=== PATIENT | female | born 1970 | race Caucasian/White ===

== ENCOUNTER 2016-11-07 03:17 | Emergency (ER) | payer OTHER ==
--- NOTE | 2016-11-07 03:33 | ED ---
Lower Extremity Injury HPI - General Chief Complaint: Extremity Injury, Lower Stated Complaint: knee pain Time Seen by Provider: 11/07/16 03:29 Source: patient, family, RN notes reviewed, old records reviewed Mode of arrival: ambulatory Limitations: no limitations - History of Present Illness Initial Comments: is a 46-year-old [employer] chief complaint of left knee pain and swelling for the past 3 weeks. Patient reports that the pain is gotten worse and woke her up this evening. Patient reports that she is able to ambulate over her knee however does cause pain after she walks for long periods of time. Patient denies any previous imaging studies or injuries to cause the pain and swelling. She denies any fever or chills. She denies any numbness or tingling or pain radiating down the leg at the calf or upper thigh. She denies any foot or ankle pain as well. She denies peripheral paresthesias.Patient denies any recent fever, chills, shortness of breath, chest pain, back pain, abdominal pain , nausea vomiting, numbness or tingling, dysuria or hematuria, constipation or diarrhea, headaches or visual changes, or any other current symptoms - Related Data Home Medications Medication Instructions Recorded Confirmed Albuterol Inhaler [Ventolin Hfa 2 puff INHALATION RT-Q6H PRN 07/27/16 11/07/16 Inhaler] Fluticasone/Salmeterol [Advair 2 puff INHALATION RT-BID 07/27/16 11/07/16 100-50 Diskus] Previous Rx's Medication Instructions Recorded Ibuprofen [Motrin] 600 mg PO Q6HR PRN #20 tab 11/07/16 traMADol HCl [Ultram] 50 mg PO Q4H PRN #12 tab 11/07/16 Allergies Allergy/AdvReac Type Severity Reaction Status Date / Time aspirin Allergy Unknown Verified 11/07/16 03:25 Penicillins Allergy Rash/Hives Verified 11/07/16 03:25 Review of Systems ROS Statement: Those systems with pertinent positive or pertinent negative responses have been documented in the HPI. ROS Other: All systems not noted in ROS Statement are negative. Past Medical History Past Medical History: Chest Pain / Angina Additional Past Medical History / Comment(s): BBB, chronic back pain, History of Any Multi-Drug Resistant Organisms: None Reported Past Surgical History: Hysterectomy Past Psychological History: No Psychological Hx Reported Smoking Status: Current every day smoker Past Alcohol Use History: Rare Past Drug Use History: None Reported General Exam - General Exam Comments Initial Comments: Is a pleasant 46-year-old female. She is on appear to be in any acute distress. Limitations: no limitations General appearance: alert, in no apparent distress Head exam: Present: atraumatic, normocephalic, normal inspection Eye exam: Present: normal appearance, PERRL, EOMI. Absent: scleral icterus, conjunctival injection, periorbital swelling ENT exam: Present: normal exam, mucous membranes moist Neck exam: Present: normal inspection. Absent: tenderness, meningismus, lymphadenopathy Respiratory exam: Present: normal lung sounds bilaterally. Absent: respiratory distress, wheezes, rales, rhonchi, stridor Cardiovascular Exam: Present: regular rate, normal rhythm, normal heart sounds. Absent: systolic murmur, diastolic murmur, rubs, gallop, clicks GI/Abdominal exam: Present: soft, normal bowel sounds. Absent: distended, tenderness, guarding, rebound, rigid Extremities exam: Present: normal inspection, full ROM, normal capillary refill. Absent: tenderness, pedal edema, joint swelling, calf tenderness Left Hip exam: Present: normal inspection, full ROM Upper Leg exam: Present: normal inspection, full ROM Knee exam: Present: normal inspection, tenderness (She reports tenderness over the medial meniscus.), swelling (An intensive significant swelling.). Absent: full ROM Lower Leg exam: Present: normal inspection, full ROM Ankle exam: Present: normal inspection, full ROM Course Vital Signs 11/07/16 11/07/16 03:21 04:18 Temperature 97.2 F L 97 F L Pulse Rate 92 89 Respiratory 18 20 Rate Blood Pressure 121/78 144/65 O2 Sat by Pulse 97 97 Oximetry Medical Decision Making - Medical Decision Making Is a 46-year-old female 3 weeks of chronic left knee pain. Patient reports that over the past day she's noticed it to be increased in swelling and the pain is gotten worse. She reports the pain woke her up from sleep. She denies any peripheral paresthesias or any other cause of injury of the knee. X-ray of knee was obtained. Patient is able to ambulate. Xray is normal with evidence of joint effusion. No acute fractures. Patient will be given antiinflammatory medication and tramadol for pain. Patient given LEVI wrap and referral to ortho. Patient understands treatment plan and will comply. Return parameters discussed. - Radiology Data Radiology results: report reviewed XR knee is negative for fracture. Evidence of joint effusion. Disposition Clinical Impression: Swelling of left knee joint Disposition: HOME SELF-CARE Condition: Good Instructions: Knee Pain (ED), Swollen Knee Joint (ED) Additional Instructions: Patient instructed to remain an Levi wrap except for sleeping. Take anti- inflammatory medications as prescribed. Start steroids for the next 3 days. Return to the [facility] if any alarming signs or symptoms occur. Follow-up with orthopedic physician Prescriptions: Ibuprofen [Motrin] 600 mg PO Q6HR PRN #20 tab PRN Reason: Pain traMADol HCl [Ultram] 50 mg PO Q4H PRN #12 tab PRN Reason: Pain Referrals: Jeovany Neely MD [STAFF PHYSICIAN] - 1-2 days Time of Disposition: 04:05
--- NOTE | 2016-11-07 04:04 | XR ---
EXAMINATION TYPE: XR knee complete LT DATE OF EXAM: 11/07/2016 3:47 AM CLINICAL HISTORY: Left hip pain x3 weeks no known injury TECHNIQUE: Three views of the 3 knee are obtained. COMPARISON: None. FINDINGS: There is no acute fracture/dislocation evident in left knee. The tri-compartment joint sp aces appear within normal limits. There is mild effusion in the left suprapatellar bursa. Mild soft t issue swelling is noted surrounding the left knee. IMPRESSION: 1. There is no acute fracture or dislocation in the left knee. 2. Mild effusion and soft tissue swelling.
[2016-11-07 04:19] VITALS: BP 144/65; PULSE 89; RESP 20; TEMP 97
== END 2016-11-07 04:19 | disposition home or self-care (01) ==
LOC: EC 03:17
DX: M25.462 Effusion, left knee (principal); G89.29 Other chronic pain; M25.562 Pain in left knee; F17.200 Nicotine dependence, unspecified, uncomplicated; Z79.51 Long term (current) use of inhaled steroids; Z88.0 Allergy status to penicillin; Z88.6 Allergy status to analgesic agent
CPT/HCPCS: 99283

== ENCOUNTER → 2016-12-16 | Outpatient (CLI) | payer OTHER ==
[2016-12-16 14:18] LABS: CH 31.1; CHCM 33.4; HCT 39.2 % (34.0-46.0); HDW 2.42; HGB 13.1 gm/dL (11.4-16.0); MCH 31.2 pg (25.0-35.0); MCHC 33.4 g/dL (31.0-37.0); MCV 93.5 fL (80.0-100.0); Mean Platelet Volume 7.9; RBC 4.19 m/uL (3.80-5.40); RDW 13.3 % (11.5-15.5); WBC 9.8 k/uL (3.8-10.6)
[2016-12-16 14:23] LABS: ALT 31 U/L (9-52); AST 18 U/L (14-36); Alkaline Phosphatase 85 U/L (38-126); Anion Gap 11 mmol/L; Blood Urea Nitrogen 14 mg/dL (7-17); C Reactive Protein 6.3 mg/L (<10.0); Calcium 9.1 mg/dL (8.4-10.2); Carbon Dioxide 22 mmol/L (22-30); Chloride 109 mmol/L (98-107); Glucose 119 mg/dL (74-99); Non-African American GFR(MDRD) >60 (>60 ml/min/1.73 sqM); Potassium 4.2 mmol/L (3.5-5.1); Rheumatoid Factor, Qnt <9 IU/mL (<12); Sodium 142 mmol/L (137-145); Total Bilirubin 0.4 mg/dL (0.2-1.3); Total Protein 7.7 g/dL (6.3-8.2)
[2016-12-16 16:57] LABS: Erythrocyte Sedimentation Rate 40 mm/hr (0-20)
[2016-12-17 05:19] LABS: Lyme Antibodies Total(IgG/IgM) 0.54 (<0.90)
[2016-12-17 12:54] LABS: HLA B27 NEGATIVE; HLA B27 Comment SEEBELOW
[2016-12-18 07:56] LABS: ANA w/Reflex to Titer POSITIVE (NEGATIVE)
== END | disposition home or self-care (01) ==
LOC: LABWHC1 13:37
PROVIDERS: ATTEND Physician Assistant
DX: M25.562 Pain in left knee (principal)
CPT/HCPCS: 36415; 80053; 84443; 85027; 85652; 86038; 86039; 86060; 86140; 86431; 86618; 86812

== ENCOUNTER 2018-07-04 16:35 | Emergency (ER) | payer OTHER ==
[2018-07-04 17:02] VITALS: TEMP 98.3
--- NOTE | 2018-07-04 17:20 | XR ---
EXAMINATION TYPE: XR foot complete LT DATE OF EXAM: 07/04/2018 CLINICAL HISTORY: Foot pain after injury attention to first toe TECHNIQUE: Frontal, lateral, and oblique images of the left foot are obtained. COMPARISON: None FINDINGS: There is no acute fracture/dislocation evident in the left foot with particular attention to left first toe. The joint spaces in the left foot appear within normal limits. The overlying sof t tissue appears unremarkable. IMPRESSION: There is no acute fracture or dislocation in the left foot.
[2018-07-04] MEDS ORDERED: traMADol 50 MG TAB PO STA (17:44)
--- NOTE | 2018-07-04 17:49 | ED ---
General Adult HPI - General Chief complaint: Extremity Injury, Lower Stated complaint: Foot injury Time Seen by Provider: 07/04/18 17:35 Source: patient, RN notes reviewed Mode of arrival: wheelchair Limitations: no limitations - History of Present Illness Initial comments: Patient is a pleasant 48-year-old female presenting to the emergency Department with left foot injury. Patient fell down the steps and hurt her left foot. Unclear exact mechanism. Patient has had discomfort since that time. Swelling has actually improved some. Patient has noticed some bruising. Discomfort does increase with movement or touch. No history of serious injury to this region previously. Discomfort is mostly located left first and second MTP. No head injury or loss of consciousness. No chest pain or dyspnea. No abdominal pain. - Related Data Home Medications Medication Instructions Recorded Confirmed Albuterol Inhaler [Ventolin Hfa 2 puff INHALATION RT-Q6H PRN 07/27/16 11/07/16 Inhaler] Fluticasone/Salmeterol [Advair 2 puff INHALATION RT-BID 07/27/16 11/07/16 100-50 Diskus] Previous Rx's Medication Instructions Recorded Ibuprofen [Motrin] 600 mg PO Q6HR PRN #20 tab 11/07/16 traMADol HCl [Ultram] 50 mg PO Q4H PRN #12 tab 11/07/16 Ibuprofen [Motrin] 600 mg PO Q6HR PRN #20 tab 07/04/18 Allergies Allergy/AdvReac Type Severity Reaction Status Date / Time aspirin Allergy Unknown Verified 07/04/18 17:02 Penicillins Allergy Rash/Hives Verified 07/04/18 17:02 steriods Allergy Swelling Uncoded 07/04/18 17:02 Review of Systems ROS Statement: Those systems with pertinent positive or pertinent negative responses have been documented in the HPI. ROS Other: All systems not noted in ROS Statement are negative. Constitutional: Denies: fever Eyes: Denies: eye pain ENT: Denies: ear pain Respiratory: Denies: dyspnea Cardiovascular: Denies: chest pain Endocrine: Denies: fatigue Gastrointestinal: Denies: abdominal pain Genitourinary: Denies: dysuria Musculoskeletal: Denies: back pain Skin: Denies: rash Neurological: Denies: headache Past Medical History Past Medical History: Chest Pain / Angina Additional Past Medical History / Comment(s): BBB, chronic back pain, History of Any Multi-Drug Resistant Organisms: None Reported Past Surgical History: Hysterectomy Past Psychological History: No Psychological Hx Reported Smoking Status: Current every day smoker Past Alcohol Use History: Rare Past Drug Use History: None Reported General Exam Limitations: no limitations General appearance: alert, in no apparent distress Head exam: Present: atraumatic Eye exam: Present: normal appearance Neck exam: Present: normal inspection. Absent: tenderness Respiratory exam: Present: normal lung sounds bilaterally Cardiovascular Exam: Present: regular rate, normal rhythm Expanded Peripheral pulses: 2+: Posterior Tibialis (L), Dorsalis Pedis (L) GI/Abdominal exam: Present: soft. Absent: tenderness Extremities exam: Present: other (Patient has mild swelling and ecchymosis mostly of the first MTP, somewhat of the second MTP. Decreased range of motion of the great toe secondary to pain. Moderate to severe tenderness to palpation. Sensation and cap refill intact.) Back exam: Absent: vertebral tenderness Neurological exam: Present: alert Psychiatric exam: Present: normal affect, normal mood Skin exam: Present: other (Ecchymosis left great toe) Course Vital Signs 07/04/18 17:00 Temperature 98.3 F Pulse Rate 93 Respiratory 18 Rate Blood Pressure 127/71 O2 Sat by Pulse 97 Oximetry Disposition Clinical Impression: Foot sprain Disposition: HOME SELF-CARE Condition: Stable Instructions: Foot Sprain (ED) Additional Instructions: Please follow-up with primary care physician in the next couple days for recheck. Limit walking on the foot. Used postoperative shoe. Consider use of a cane if needed. Return for increased pain, swelling, worsening or changing symptoms or other concerns. Prescriptions: Ibuprofen [Motrin] 600 mg PO Q6HR PRN #20 tab PRN Reason: Pain Is patient prescribed a controlled substance at d/c from ED?: No Referrals: Rosa Maria Isabel MD [STAFF PHYSICIAN] - 1-2 days Time of Disposition: 17:48
[2018-07-04 18:22] VITALS: BP 136/71; PULSE 76; RESP 16
== END 2018-07-04 18:15 | disposition home or self-care (01) ==
LOC: EC 16:35
DX: S93.692A Other sprain of left foot, initial encounter (principal); F17.200 Nicotine dependence, unspecified, uncomplicated; Z79.51 Long term (current) use of inhaled steroids; Z88.0 Allergy status to penicillin; Z88.6 Allergy status to analgesic agent; Z88.8 Allergy status to other drugs, medicaments and biological substances; W10.9XXA Fall (on) (from) unspecified stairs and steps, initial encounter
CPT/HCPCS: 99283

== ENCOUNTER 2019-07-02 14:53 | Emergency (ER) | payer OTHER ==
--- NOTE | 2019-07-02 16:30 | ED ---
General Adult HPI - General Chief complaint: Shortness of Breath Stated complaint: ROB,cough Time Seen by Provider: 07/02/19 16:20 Source: patient, RN notes reviewed Mode of arrival: ambulatory Limitations: no limitations - History of Present Illness Initial comments: 49-year-old female with a past medical history of COPD, smoking history presents for cough. Patient has had a cough for about a week. Patient has a mild associated chest of breath with this. Denies any chest pain. States cough is productive. States she is to use inhalers but since she moved to this area does not have any inhalers. States she is ALLERGIC to steroids. Denies fevers or chills.Patient has no other complaints at this time including chest pain, abdominal pain, nausea or vomiting, headache, or visual changes. - Related Data Home Medications Medication Instructions Recorded Confirmed Albuterol Inhaler [Ventolin Hfa 2 puff INHALATION RT-Q6H PRN 07/27/16 07/04/18 Inhaler] Previous Rx's Medication Instructions Recorded Ibuprofen [Motrin] 600 mg PO Q6HR PRN #20 tab 07/04/18 Albuterol Inhaler [Ventolin Hfa 1 - 2 puff INHALATION Q6HR PRN #1 07/02/19 Inhaler] inhaler Azithromycin [Zithromax Z-pack] 250 mg PO DIRECTED #6 tab 07/02/19 Benzonatate [Tessalon Perles] 200 mg PO Q8H PRN #15 capsule 07/02/19 Allergies Allergy/AdvReac Type Severity Reaction Status Date / Time aspirin Allergy Unknown Verified 07/02/19 15:21 Penicillins Allergy Rash/Hives Verified 07/02/19 15:21 steriods Allergy Swelling Uncoded 07/02/19 15:21 Review of Systems ROS Statement: Those systems with pertinent positive or pertinent negative responses have been documented in the HPI. ROS Other: All systems not noted in ROS Statement are negative. Past Medical History Past Medical History: Chest Pain / Angina Additional Past Medical History / Comment(s): BBB, chronic back pain, History of Any Multi-Drug Resistant Organisms: None Reported Past Surgical History: Hysterectomy Past Psychological History: No Psychological Hx Reported Smoking Status: Current every day smoker Past Alcohol Use History: Rare Past Drug Use History: None Reported General Exam Limitations: no limitations General appearance: alert, in no apparent distress Head exam: Present: atraumatic, normocephalic, normal inspection Eye exam: Present: normal appearance, PERRL, EOMI. Absent: scleral icterus, conjunctival injection, periorbital swelling ENT exam: Present: normal exam, mucous membranes moist Neck exam: Present: normal inspection, full ROM. Absent: tenderness, meningismus, lymphadenopathy Respiratory exam: Present: wheezes (minimal in lower vega bilat), decreased breath sounds (diminished bilat). Absent: respiratory distress, rales, rhonchi, stridor Cardiovascular Exam: Present: regular rate, normal rhythm, normal heart sounds. Absent: systolic murmur, diastolic murmur, rubs, gallop, clicks Neurological exam: Present: alert Course Vital Signs 07/02/19 07/02/19 07/02/19 15:17 16:58 17:13 Temperature 98.0 F Pulse Rate 84 84 82 Respiratory 22 Rate Blood Pressure 149/91 O2 Sat by Pulse 97 Oximetry Medical Decision Making - Medical Decision Making 49-year-old well-appearing female presents for cough. This has been ongoing for a week. History of COPD. Vitals are stable. Patient is 97% on room air. Lung sounds are diminished bilaterally with minimal wheezing. Chest x-ray obtained which showed a normal chest. She was given breathing treatment which did help significantly. She is ALLERGIC to steroids unfortunately. At this time patient likely a COPD exacerbation. She'll be discharged home with inhaler and antibiotic. She will follow up with primary care in 1-2 days or return if she has any worsening symptoms. Disposition Clinical Impression: COPD exacerbation Disposition: HOME SELF-CARE Condition: Good Instructions (If sedation given, give patient instructions): COPD (Chronic Obstructive Pulmonary Disease) (ED), Acute Cough (ED) Additional Instructions: Please use medications as directed. These were prescribed to Braxton Ortiz. Follow- up with primary care in 1-2 days. If you have worsening symptoms or this is not resolving return to the ER. Prescriptions: Benzonatate [Tessalon Perles] 200 mg PO Q8H PRN #15 capsule PRN Reason: Cough Albuterol Inhaler [Ventolin Hfa Inhaler] 1 - 2 puff INHALATION Q6HR PRN #1 inhaler PRN Reason: Shortness Of Breath Azithromycin [Zithromax Z-pack] 250 mg PO DIRECTED #6 tab Is patient prescribed a controlled substance at d/c from ED?: No Referrals: Amor Walter MD [REFERRING] - 1-2 days Time of Disposition: 17:39
--- NOTE | 2019-07-02 16:44 | XR ---
EXAMINATION TYPE: XR chest 2V DATE OF EXAM: 07/02/2019 COMPARISON: 05/21/2015 HISTORY: Short of breath TECHNIQUE: Frontal and lateral views of the chest are obtained. FINDINGS: Heart and mediastinum are normal. Lungs are clear. Diaphragm is normal. Bony thorax is int act. IMPRESSION: Normal chest. No change.
[2019-07-02] MEDS ORDERED: IPRATROPIUM-ALBUTEROL 3 ML NEB INHALATION STA (16:45)
[2019-07-02 17:58] VITALS: BP 132/78; PULSE 87; RESP 18; TEMP 98.1
== END 2019-07-02 17:57 | disposition home or self-care (01) ==
LOC: EC 14:53
DX: J44.1 Chronic obstructive pulmonary disease with (acute) exacerbation (principal); F17.200 Nicotine dependence, unspecified, uncomplicated; Z88.0 Allergy status to penicillin; Z88.6 Allergy status to analgesic agent; Z88.8 Allergy status to other drugs, medicaments and biological substances; Z79.899 Other long term (current) drug therapy
CPT/HCPCS: 71046; 94640; 99285

== ENCOUNTER → 2019-09-21 | Outpatient (CLI) | payer OTHER ==
--- NOTE | 2019-09-21 13:47 | CT ---
EXAMINATION TYPE: CT chest wo con DATE OF EXAM: 09/21/2019 COMPARISON: Chest x-ray July 02, 2019 and older study May 21, 2015 HISTORY: cough, congestion and shortness of breath. Interstitial lung disease, lupus, tobacco use, se booker persistent asthma, and rheumatoid arthritis all per border. CT DLP: 511.4 mGycm. Automated Exposure Control for Dose Reduction was Utilized. TECHNIQUE: CT scan of the thorax is performed without IV contrast. Images provided in 5 and 1 mm silvia shena. FINDINGS: LUNGS: There are some scattered micronodules for reference 6 x 3 mm subpleural nodule or nodular cons olidation left lower lobe axial image 24. There is 2 to 3 mm nodule superior aspect right lower lobe axial image 21 series 4 confirms coronal image 66. There is no pleural effusion or pneumothorax seen. The tracheobronchial tree is patent. MEDIASTINUM: Lack of IV contrast is noted to limit evaluation for mediastinal and especially hilar ad enopathy. There are no definitive greater than 1 cm hilar or mediastinal lymph nodes. No cardiomega ly or pericardial effusion is seen. OTHER: Liver is diffusely low-density consistent with fatty infiltration. Exaggerated kyphosis with m ild multilevel spurring. IMPRESSION: No significant acute or chronic pulmonary process.
== END ==
LOC: RADCTMAIN 12:57
PROVIDERS: ATTEND Internal Medicine Pulmonary Disease
DX: J45.50 Severe persistent asthma, uncomplicated (principal); M06.9 Rheumatoid arthritis, unspecified; M32.9 Systemic lupus erythematosus, unspecified; J84.9 Interstitial pulmonary disease, unspecified; Z72.0 Tobacco use
CPT/HCPCS: 71250

== ENCOUNTER → 2020-06-14 | Outpatient (CLI) | payer OTHER ==
--- NOTE | 2020-06-14 09:43 | CT ---
EXAMINATION TYPE: CT chest wo con DATE OF EXAM: 06/14/2020 COMPARISON: 09/21/2019 HISTORY: ILD, , history of ovarian CA CT DLP: 480.[address] of the chest was performed with lung and mediastinal window settings submitted. The la ck of contrast limits evaluation of the vascular, mediastinal and parenchymal structures including th e upper abdomen. LUNGS: Stable calcified granuloma right upper lobe. The lungs are clear and free of infiltrate. No at electasis. No pulmonary nodule or mass is detected. No pleural effusion. No CT evidence of interst itial lung disease. MEDIASTINUM/ROBIN: Thoracic aorta is of normal caliber with limited evaluation given lack of contrast . The heart is not enlarged. No evidence for mediastinal mass. No lymph nodes greater than 1cm. UPPER ABDOMEN: No significant abnormality is seen. OTHER: No significant other abnormality. IMPRESSION: 1. No distinct abnormality appreciated.
== END | disposition home or self-care (01) ==
LOC: RADCTMAIN 09:15
PROVIDERS: ATTEND Internal Medicine Pulmonary Disease
DX: J84.9 Interstitial pulmonary disease, unspecified (principal); M06.9 Rheumatoid arthritis, unspecified
CPT/HCPCS: 71250

== ENCOUNTER 2022-04-13 16:12 | Observation (INO) | payer OTHER ==
[2022-04-13 16:55] VITALS: RESP 18; TEMP 97.8
--- NOTE | 2022-04-13 19:58 | ED ---
General Adult HPI - General Chief complaint: Extremity Problem,Nontraumatic Stated complaint: possible DVT sent by urgent care Time Seen by Provider: 04/13/22 19:34 Source: patient, RN notes reviewed Mode of arrival: ambulatory Limitations: no limitations - History of Present Illness Initial comments: 52-year-old female with a past medical history of lupus and are presents to the emergency department for evaluation of right foot discoloration and pain 2 days. Patient states she has a purplish discoloration to the right great toe and fourth toe. Also has discoloration on the plantar surface of her foot. Patient states the pain is excruciating and worsens with weightbearing. Denies any injury. States she rarely leaves the house. Denies any recent travel, prolonged immobilization, or long car rides. No fever, chills, chest pain, shortness of breath, abdominal pain, nausea, vomiting, diarrhea, or dysuria. - Related Data Home Medications Medication Instructions Recorded Confirmed Pantoprazole [Protonix] 40 mg PO DAILY 04/14/22 04/14/22 Allergies Allergy/AdvReac Type Severity Reaction Status Date / Time aspirin Allergy Unknown Verified 04/14/22 07:43 Penicillins Allergy Rash/Hives Verified 04/14/22 07:43 steriods Allergy Swelling Uncoded 04/13/22 16:55 Review of Systems ROS Statement: Those systems with pertinent positive or pertinent negative responses have been documented in the HPI. ROS Other: All systems not noted in ROS Statement are negative. Past Medical History Past Medical History: Chest Pain / Angina Additional Past Medical History / Comment(s): BBB, chronic back pain, History of Any Multi-Drug Resistant Organisms: None Reported Past Surgical History: Hysterectomy Past Psychological History: No Psychological Hx Reported Past Alcohol Use History: Rare Past Drug Use History: None Reported - Past Family History Family Family Medical History: No Reported History General Exam Limitations: no limitations (Well-developed, well-nourished female in no acute distress. Initial temperature 97.8, pulse 90, respirations 18, blood pressure 145/80, pulse ox 96% on room air.) General appearance: alert, in no apparent distress ENT exam: Present: normal exam, normal oropharynx, mucous membranes moist Respiratory exam: Present: normal lung sounds bilaterally. Absent: respiratory distress, wheezes, rales, rhonchi, stridor Cardiovascular Exam: Present: regular rate, normal rhythm, normal heart sounds. Absent: systolic murmur, diastolic murmur, rubs, gallop, clicks GI/Abdominal exam: Present: soft, normal bowel sounds. Absent: distended, tenderness, guarding, rebound, rigid Left Knee exam: Present: normal inspection, full ROM. Absent: tenderness, swelling Lower Leg exam: Present: normal inspection, full ROM. Absent: tenderness, swelling Ankle exam: Present: swelling (mild nonpitting edema of the left ankle). Absent: erythema Foot/Toe exam: Present: normal inspection, full ROM Neurovascular tendon exam: Present: pulse deficit (+1 pedal pulse). Absent: motor deficit, sensory deficit, extremity cold to touch, pallor Right Knee exam: Present: normal inspection, full ROM. Absent: tenderness, swelling Lower Leg exam: Present: normal inspection, full ROM. Absent: tenderness, swelling, erythema, Homans' sign Ankle exam: Present: tenderness, swelling (mild tenderness and swelling of the right ankle) Foot/Toe exam: Present: tenderness (marked tenderness of the right great toe), ecchymosis (Ruborous skin discoloration to great toe and 4th toe. Blanchable with delayed cap refill (5 sec). Scattered area of purple discoloration distal aspect of plantar surface.) Neurovascular tendon exam: Present: pulse deficit (doppler pulse- rt pedal and posttibial), abnormal cap refill (5 sec right great toe). Absent: sensory deficit, pallor Gait: unable to bear weight (endorses severe pain with weight bearing on right foot) Neurological exam: Present: alert, oriented X3, CN II-XII intact Psychiatric exam: Present: anxious Skin exam: Present: warm, dry Course Vital Signs 04/13/22 04/13/22 04/14/22 16:52 22:50 01:48 Temperature 97.8 F Pulse Rate 90 84 80 Respiratory 18 18 18 Rate Blood Pressure 145/80 132/83 142/80 O2 Sat by Pulse 96 98 97 Oximetry - Reevaluation(s) Reevaluation #1: 04/13/22 21:00 Dr. Sol present at bedside to evaluate patient. He recommends contacting v ascular and hospital admission. 04/14/22 00:00 I spoke with both Drs. Zavaleta and Leodan regarding this patient's physical exam findings. CT angio with run off ordered. Medical Decision Making - Medical Decision Making This is a 52-year-old female with a past medical history of COPD, angina, lupus, and chronic back pain who presents to the emergency Department with complaints of foot pain and swelling. Upon exam, patient is well-appearing and in no acute distress at rest. Bilateral lower extremities are warm and nonedematous. She has mild nonpitting dependent edema of the left ankle with palpable pedal and posttibial pulses. Her right foot is warm and pink with purpleish discoloration noted to the great toe and fourth digit. She has exquisite tenderness upon palpation and diminished cap refill. Pulses are obtained via Doppler. I spoke with vascular who recommend imaging which showed mild atherosclerotic vascular disease and more than 50% stenosis of the proximal internal iliac arteries bilaterally. There is no occlusion accounting for this patient's symptoms. Laboratory studies were reviewed and are unremarkable. She will be admitted to the hospital for further evaluation and treatment. Dr. Peralta agrees to accept this patient on behalf of Pablo. Attending: Ebenezer. - Lab Data Result diagrams: 04/13/22 21:45 04/14/22 06:55 Lab Results 04/13/22 04/13/22 04/13/22 Range/Units 21:45 21:45 21:45 WBC 6.5 (3.8-10.6) k/uL RBC 4.12 (3.80-5.40) m/uL Hgb 13.3 (11.4-16.0) gm/dL Hct 38.5 (34.0-46.0) % MCV 93.4 (80.0-100.0) fL MCH 32.4 (25.0-35.0) pg MCHC 34.6 (31.0-37.0) g/dL RDW 13.2 (11.5-15.5) % Plt Count 159 (150-450) k/uL MPV 8.3 Neutrophils % 49 % Lymphocytes % 39 % Monocytes % 4 % Eosinophils % 5 % Basophils % 2 % Neutrophils # 3.2 (1.3-7.7) k/uL Lymphocytes # 2.5 (1.0-4.8) k/uL Monocytes # 0.3 (0-1.0) k/uL Eosinophils # 0.3 (0-0.7) k/uL Basophils # 0.1 (0-0.2) k/uL PT 10.4 (9.0-12.0) sec INR 1.0 (<1.2) APTT 21.6 L (22.0-30.0) sec Sodium 139 (137-145) mmol/L Potassium 4.0 (3.5-5.1) mmol/L Chloride 110 H (98-107) mmol/L Carbon Dioxide 20 L (22-30) mmol/L Anion Gap 9 mmol/L BUN 16 (7-17) mg/dL Creatinine 0.90 (0.52-1.04) mg/dL Est GFR (CKD-EPI)AfAm 85 (>60 ml/min/1.73 sqM) Est GFR (CKD-EPI)NonAf 74 (>60 ml/min/1.73 sqM) Glucose 92 (74-99) mg/dL Estimated Ave Glu mg/dL Hemoglobin A1c (0.0-6.0) % Calcium 8.9 (8.4-10.2) mg/dL Total Bilirubin 0.7 (0.2-1.3) mg/dL AST 43 H (14-36) U/L ALT 58 H (4-34) U/L Alkaline Phosphatase 109 (38-126) U/L Total Protein 7.8 (6.3-8.2) g/dL Albumin 4.1 (3.5-5.0) g/dL 04/13/22 Range/Units 21:45 WBC (3.8-10.6) k/uL RBC (3.80-5.40) m/uL Hgb (11.4-16.0) gm/dL Hct (34.0-46.0) % MCV (80.0-100.0) fL MCH (25.0-35.0) pg MCHC (31.0-37.0) g/dL RDW (11.5-15.5) % Plt Count (150-450) k/uL MPV Neutrophils % % Lymphocytes % % Monocytes % % Eosinophils % % Basophils % % Neutrophils # (1.3-7.7) k/uL Lymphocytes # (1.0-4.8) k/uL Monocytes # (0-1.0) k/uL Eosinophils # (0-0.7) k/uL Basophils # (0-0.2) k/uL PT (9.0-12.0) sec INR (<1.2) APTT (22.0-30.0) sec Sodium (137-145) mmol/L Potassium (3.5-5.1) mmol/L Chloride (98-107) mmol/L Carbon Dioxide (22-30) mmol/L Anion Gap mmol/L BUN (7-17) mg/dL Creatinine (0.52-1.04) mg/dL Est GFR (CKD-EPI)AfAm (>60 ml/min/1.73 sqM) Est GFR (CKD-EPI)NonAf (>60 ml/min/1.73 sqM) Glucose (74-99) mg/dL Estimated Ave Glu mg/dL 114 Hemoglobin A1c 5.6 (0.0-6.0) % Calcium (8.4-10.2) mg/dL Total Bilirubin (0.2-1.3) mg/dL AST (14-36) U/L ALT (4-34) U/L Alkaline Phosphatase (38-126) U/L Total Protein (6.3-8.2) g/dL Albumin (3.5-5.0) g/dL - Radiology Data Radiology results: report reviewed, image reviewed CT angiogram abdominal aorta with runoff was obtained. Report was reviewed in its entirety. Impression per Dr. Best is some mild atherosclerotic vascular disease. I do not see evidence for hemodynamic stenosis of the moral and popliteal and tibial arteries. There is some plaque and more than 50% stenosis of the proximal internal iliac arteries bilaterally. No aneurysm or dissection. No acute abnormality within the abdomen or pelvis. Small calcified gallstone and probable common duct stone in the distal common duct but no obstruction. Disposition Clinical Impression: Decreased pedal pulses, Right foot pain, Prolonged capillary refill time Disposition: ADMITTED IP TO THIS [facility] Condition: Serious Decision Date: 04/14/22 Decision Time: 00:22
[2022-04-13] MEDS ORDERED: ONDANSETRON 4 MG/2 ML VIAL IVP STA (21:01)
[2022-04-13] MEDS ORDERED: MORPHINE SULFATE 4 MG/ML SYRINGE IVP STA (21:01)
[2022-04-13 22:03] LABS: Basophils # (A) 0.1 k/uL (0-0.2); Basophils % (A) 2 %; Eosinophils # (A) 0.3 k/uL (0-0.7); Eosinophils % (A) 5 %; HCT 38.5 % (34.0-46.0); HGB 13.3 gm/dL (11.4-16.0); Lymphocytes # (A) 2.5 k/uL (1.0-4.8); Lymphocytes % (A) 39 %; MCH 32.4 pg (25.0-35.0); MCHC 34.6 g/dL (31.0-37.0); MCV 93.4 fL (80.0-100.0); Mean Platelet Volume 8.3; Monocytes # (A) 0.3 k/uL (0-1.0); Monocytes % (A) 4 %; Neutrophils # (A) 3.2 k/uL (1.3-7.7); Neutrophils % (A) 49 %; Platelet Count 159 k/uL (150-450); RBC 4.12 m/uL (3.80-5.40); RDW 13.2 % (11.5-15.5); WBC 6.5 k/uL (3.8-10.6)
[2022-04-13 22:13] LABS: Albumin 4.1 g/dL (3.5-5.0); Calcium 8.9 mg/dL (8.4-10.2); Total Bilirubin 0.7 mg/dL (0.2-1.3); Total Protein 7.8 g/dL (6.3-8.2)
[2022-04-13 22:26] LABS: Prothrombin Time 10.4 sec (9.0-12.0)
[2022-04-13 22:54] LABS: Partial Thromboplastin Time 21.6 sec (22.0-30.0)
--- NOTE | 2022-04-13 23:30 | CT ---
EXAMINATION TYPE: CT angio abd aorta w/Runoff DATE OF EXAM: 04/13/2022 COMPARISON: None HISTORY: RLE pain CT DLP: 3345.6 mGycm Automated exposure control for dose reduction was used. CONTRAST: Performed with IV Contrast, patient injected with 100 mL of Isovue 370. Images obtained from the diaphragm to the floor the pelvis without contrast. Images obtained from the diaphragm to the bottom of the feet with the IV contrast. There are Three-D postprocessed images. FINDINGS: Liver spleen pancreas gallbladder or stomach appear intact. The bile ducts are not dilated. There is no adrenal mass. Kidneys show satisfactory contrast opacification. There is no hydronephrosis. Ureter s are not dilated. No retroperitoneal adenopathy. Bladder distends smoothly. No inguinal hernia. No f ree fluid in the pelvis. No evidence of a pelvic mass. There is no mesenteric edema. No ascites or fr ee air. No bowel obstruction. There is small calcified gallstone. There is 4 mm calculus apparently i n the distal common bile duct but apparently not producing obstruction. There is contrast opacification of the abdominal aorta which has fairly normal size. There is arteria l flow in the celiac artery and superior mesenteric artery. There is bilateral arterial flow in the r enal arteries. There is mild plaque formation in the lower abdominal aorta. No hemodynamic stenosis. There is arterial flow in the iliac and femoral arteries. There is some plaque formation and more matthieu n 50% stenosis at the proximal internal iliac arteries bilaterally. There is arterial flow in a femor al arteries bilaterally. There is minimal plaque formation in the femoral arteries bilaterally. I do not see evidence for hemodynamic stenosis. There is arterial flow in both popliteal arteries and the tibial arteries and the tibial artery trifurcations. There is arterial flow in the posterior tibial a rtery and dorsalis pedis artery bilaterally at the ankle and the midfoot. There is posterior tibial a rtery flow to the mid metatarsals bilaterally. No evidence of hemodynamic stenosis. There is some mil d calcified plaque formation in the femoral and popliteal and tibial arteries bilaterally. IMPRESSION: There is some mild atherosclerotic vascular disease. I do not see evidence for hemodynamic stenosis o f the femoral and popliteal and tibial arteries. There is some plaque and more than 50% stenosis of t he proximal internal iliac arteries bilaterally. No aneurysm or dissection. No acute abnormality with in the abdomen and pelvis. Small calcified gallstone and probable common duct stone in the distal common bile duct but no obstru ction.
[2022-04-14] MEDS ORDERED: NALOXONE 0.4 MG/ML 1 ML VIAL IV PRN (00:15)
[2022-04-14] MEDS ORDERED: ONDANSETRON 4 MG/2 ML VIAL IVP PRN (00:15)
[2022-04-14] MEDS ORDERED: ACETAMINOPHEN TAB 325 MG TAB PO PRN (00:15)
[2022-04-14] MEDS: MORPHINE SULFATE 4 MG/ML SYRINGE IV PRN ×2 (01:47→05:33)
[2022-04-14 01:49] VITALS: BP 142/80; PULSE 80
[2022-04-14] MEDS ORDERED: IPRATROPIUM-ALBUTEROL 3 ML NEB INHALATION PRN (04:32)
[2022-04-14] MEDS ORDERED: ATORVASTATIN 20 MG TAB PO SCH (04:32)
--- NOTE | 2022-04-14 04:42 | P.HPIM ---
History of Present Illness H&P Date: 04/14/22 Chief Complaint: Purple discoloration of the right foot 52-year-old female with COPD heavy smoking history, lupus Patient comes in with 2 day history of purplish discoloration of the toes of the right foot with cold feeling and pain denies any numbness tingling denies any loss of function denies any decrease in sensation. She also reports intermittent claudication bilateral legs with pain shooting all the way up to the glutes upon walking which has been progressively getting worse now is triggered by walking even short distances usually relieved by resting. However the reason she is here today is because of the purplish discoloration that started all of a sudden 2 days ago and is not going away. Otherwise patient denies any history of blood clots denies any stenting to the lower extremities denies any cardiac history denies any chest pain or trouble breathing denies any nausea vomiting fevers chills changes in bowel or urinary habits In the ED after evaluation vascular surgery was notified, CT angiography of the lower extremities showed mild atherosclerosis vascular disease also some plaquing and more than 50% stenosis of the proximal internal iliac arteries bilaterally no aneurysm or dissection was detected Patient was admitted for further vascular surgery evaluation Review of Systems Pertinent positives as noted in HPI. All other systems were reviewed and are negative Past Medical History Past Medical History: Chest Pain / Angina, COPD Additional Past Medical History / Comment(s): BBB, chronic back pain, lupus History of Any Multi-Drug Resistant Organisms: None Reported Past Surgical History: Hysterectomy Past Psychological History: No Psychological Hx Reported Past Alcohol Use History: Rare Past Drug Use History: None Reported - Past Family History Family Family Medical History: No Reported History Medications and Allergies Home Medications Medication Instructions Recorded Confirmed Type Albuterol Inhaler [Ventolin Hfa 2 puff INHALATION RT-Q6H PRN 07/27/16 07/04/18 History Inhaler] Ibuprofen [Motrin] 600 mg PO Q6HR PRN #20 tab 07/04/18 Rx Albuterol Inhaler [Ventolin Hfa 1 - 2 puff INHALATION Q6HR PRN #1 07/02/19 Rx Inhaler] inhaler Azithromycin [Zithromax Z-pack (6 250 mg PO DIRECTED #6 tab 07/02/19 Rx tabs)] Benzonatate [Tessalon Perles] 200 mg PO Q8H PRN #15 capsule 07/02/19 Rx Allergies Allergy/AdvReac Type Severity Reaction Status Date / Time aspirin Allergy Unknown Verified 04/13/22 16:55 Penicillins Allergy Rash/Hives Verified 04/13/22 16:55 steriods Allergy Swelling Uncoded 04/13/22 16:55 Physical Exam Vitals: Vital Signs Temp Pulse Resp BP Pulse Ox 04/14/22 01:48 80 18 142/80 97 04/13/22 22:50 84 18 132/83 98 04/13/22 16:52 97.8 F 90 18 145/80 96 Intake and Output 04/13/22 04/13/22 04/14/22 14:59 22:59 06:59 Other: Weight 81.647 kg Constitutional: No acute distress, conversant, pleasant Eyes: Anicteric sclerae, moist conjunctiva, Pupils equal round reactive to light ENMT: NC/AT Oropharynx clear, no erythema, or exudates Neck: Supple, FROM, no masses, or JVD No carotid bruits No thyromegaly Lungs: Clear to auscultation Clear to percussion Normal respiratory effort, no accessory muscle use Cardiovascular: Heart regular in rate and rhythm, No murmurs, gallops, or rubs No peripheral edema Abdominal: Soft Nontender, no guarding, rebound or rigidity Abdomen moving with respiration Normoactive bowel sounds No hepatomegaly, No splenomegaly No palpable mass No abdominal wall hernia noted Skin: Normal temperature, tone, texture, turgor No induration No subcutaneous nodules No rash, lesions No ulcers Extremities: Purplish discoloration of the big toe second third toe of the right foot with some delayed capillary refill, dorsalis pedis artery is only detectable by Doppler popliteal artery is palpable Radial pulses intact and symmetrical No calf tenderness Psychiatric: Alert and oriented to person, place and time Appropriate affect fair judgement Neuro Muscles Strength 5/5 in all 4 extremities Sensation to light touch grossly present throughout Cranial nerves II-XII grossly intact No focal sensory deficits Lymphatics: no palpable cervical or supraclavicular , or inguinal lymph nodes Results CBC & Chem 7: 04/13/22 21:45 04/13/22 21:45 Labs: Abnormal Lab Results - Last 24 Hours (Table) 04/13/22 04/13/22 Range/Units 21:45 21:45 APTT 21.6 L (22.0-30.0) sec Chloride 110 H (98-107) mmol/L Carbon Dioxide 20 L (22-30) mmol/L AST 43 H (14-36) U/L ALT 58 H (4-34) U/L Assessment and Plan Assessment: Peripheral arterial disease rule out peripheral arterial occlusion CT angiography of the lower extremity showed mild atherosclerosis vascular disease also some plaquing and more than 50% stenosis of the proximal internal iliac arteries bilaterally no aneurysm or dissection was detected Vascular surgery notified Patient ALLERGIC to aspirin Start patient on Plavix, statin, cilostazol Check lipid profile Check A1c Await further vascular surgery recommendations Neurovascular assessment every 2 hours Patient counseled strongly to quit smoking Chronic conditions COPD compensated continue with inhalers and supplemental oxygen as needed Full code DVT prophylaxis heparin subcu 3 times a day
[2022-04-14] MEDS ORDERED: CLOPIDOGREL 75 MG TAB PO SCH (04:45)
[2022-04-14] MEDS ORDERED: PANTOPRAZOLE 40 MG TABLET PO SCH (07:30)
[2022-04-14] MEDS ORDERED: HEPARIN SODIUM,PORCINE/PF 5,000 UNIT/0.5 ML SYRINGE SQ SCH (08:00)
[2022-04-14] MEDS ORDERED: cilostazoL 100 MG TAB PO SCH (09:00)
[2022-04-14 11:48] LABS: Chol/HDL Ratio 6.39 Ratio
[2022-04-14 12:15] LABS: African American GFR (CKD) 73.2 (60.0-200.0); BUN/Creat Ratio 12.06 Ratio (12.00-20.00); Blood Urea Nitrogen 12.3 mg/dL (9.0-27.0); Calcium 8.7 mg/dL (8.7-10.3); Carbon Dioxide 19.8 mmol/L (20.0-27.5); Glucose 138 mg/dL (70-110); Non-African American GFR(CKD) 63.2 (60.0-200.0)
[2022-04-14 14:01] LABS: Chloride 103 mmol/L (96-109); Potassium 4.3 mmol/L (3.5-5.5); Sodium 138 mmol/L (135-145)
--- NOTE | 2022-04-14 15:09 | P.DS ---
Providers Date of admission: 04/14/22 01:08 Expected date of discharge: 04/14/22 Attending physician: Chelsie Scanlon Consults: 04/14/22 00:15 Consult Physician Routine Consulting Provider: Hunter Alcocer Consult Reason/Comments: Diminished pedal pulse, delay cap refill, right foot discoloration Do you want consulting provider notified?: Already Contacted Primary care physician: Stated None Hospital Course: Patient left AGAINST MEDICAL ADVICE prior to me seeing her. Patient Condition at Discharge: Serious Plan - Discharge Summary New Discharge Prescriptions: No Action Pantoprazole [Protonix] 40 mg PO DAILY Discharge Medication List Pantoprazole [Protonix] 40 mg PO DAILY 04/14/22 [History] Follow up Appointment(s)/Referral(s): None,Stated [Primary Care Provider] - 1-2 days Discharge Disposition: Left Against Medical Advice
== END 2022-04-14 10:14 | disposition left against medical advice (07) ==
LOC: EC 16:12 → 6NMEDSUR 04-14 01:08
PROVIDERS: ADMIT Hospitalist; ATTEND Hospitalist
DX: I70.218 Atherosclerosis of native arteries of extremities with intermittent claudication, other extremity (principal); Z53.29 Procedure and treatment not carried out because of patient's decision for other reasons; J44.9 Chronic obstructive pulmonary disease, unspecified; G89.29 Other chronic pain; M54.9 Dorsalgia, unspecified; I45.4 Nonspecific intraventricular block; Z87.891 Personal history of nicotine dependence; Z90.710 Acquired absence of both cervix and uterus; Z88.6 Allergy status to analgesic agent; Z88.0 Allergy status to penicillin; Z71.6 Tobacco abuse counseling
CPT/HCPCS: 96376; 96374; 96375; 99284; 36415; 80061; 80053; 80048; 85025; 85610; 85730; 83036; 75635; G0378; J2270 ×2; J2405 ×2; Q9967

== ENCOUNTER 2022-05-11 23:39 | Observation (INO) | payer OTHER ==
[2022-05-11] MEDS ORDERED: SODIUM CHLORIDE 0.9% 500 ML 500 ML IV STA (23:50)
[2022-05-11] MEDS ORDERED: ONDANSETRON 4 MG/2 ML VIAL IVP STA (23:51)
[2022-05-11] MEDS ORDERED: MORPHINE SULFATE 4 MG/ML SYRINGE IV STA (23:51)
--- NOTE | 2022-05-11 23:57 | ED ---
Chest Pain HPI - General Chief Complaint: Chest Pain Stated Complaint: chest pain Time Seen by Provider: 05/11/22 23:43 Source: EMS, RN notes reviewed Mode of arrival: EMS - History of Present Illness Initial Comments: This is a pleasant 52-year-old female who developed chest pain about 3 hours prior to arrival. She describes a sharp pain that radiates through to the back. Affected by breathing. No alleviating factors. Started at rest. Patient was complaining of nausea and diaphoresis. Patient does have a history of peripheral arterial disease and is actually scheduled for a bypass surgery of the right leg. Patient currently on Xarelto. MD Complaint: chest pain Pain Location: substernal - Related Data Home Medications Medication Instructions Recorded Confirmed Pantoprazole [Protonix] 40 mg PO DAILY 04/14/22 04/14/22 Allergies Allergy/AdvReac Type Severity Reaction Status Date / Time aspirin Allergy Unknown Verified 04/14/22 07:43 Penicillins Allergy Rash/Hives Verified 04/14/22 07:43 steriods Allergy Swelling Uncoded 04/13/22 16:55 Review of Systems ROS Statement: Those systems with pertinent positive or pertinent negative responses have been documented in the HPI. ROS Other: All systems not noted in ROS Statement are negative. EKG Findings - EKG Comments: EKG Findings:: EKG shows a left bundle-branch block with a rate of 77. QRS duration 136 ms. Remainder of the intervals are normal. Left axis deviation. No evidence of [place] wounds. No evidence of acute changes. When compared to the previous study, other than the QRS duration, morphology is very similar. Previous study from 2014 Past Medical History Past Medical History: Chest Pain / Angina Additional Past Medical History / Comment(s): BBB, chronic back pain, History of Any Multi-Drug Resistant Organisms: None Reported Past Surgical History: Hysterectomy Past Psychological History: No Psychological Hx Reported Past Alcohol Use History: Rare Past Drug Use History: None Reported - Past Family History Family Family Medical History: No Reported History General Exam - General Exam Comments Initial Comments: Vital signs noted, patient in distress secondary to chest pain. General appearance: alert, in distress Head exam: Present: atraumatic, normocephalic, normal inspection Eye exam: Present: normal appearance, PERRL, EOMI. Absent: scleral icterus, conjunctival injection, periorbital swelling ENT exam: Present: normal exam, normal oropharynx, mucous membranes moist, normal external ear exam Neck exam: Present: normal inspection, full ROM. Absent: tenderness, meningismus, lymphadenopathy Respiratory exam: Present: normal lung sounds bilaterally. Absent: respiratory distress, wheezes, rales, rhonchi, stridor Cardiovascular Exam: Present: regular rate, normal rhythm, normal heart sounds. Absent: systolic murmur, diastolic murmur, rubs, gallop, clicks GI/Abdominal exam: Present: soft, normal bowel sounds. Absent: distended, tenderness, guarding, rebound, rigid Extremities exam: Present: normal inspection, full ROM, normal capillary refill. Absent: tenderness, pedal edema, joint swelling, calf tenderness Back exam: Present: normal inspection Neurological exam: Present: alert, oriented X3, CN II-XII intact Psychiatric exam: Present: normal affect, normal mood Skin exam: Present: warm, dry, intact, normal color. Absent: rash, cyanosis, diaphoretic, erythema Course Vital Signs 05/11/22 23:43 Temperature 98 F Pulse Rate 93 Respiratory 24 Rate Blood Pressure 138/116 O2 Sat by Pulse 97 Oximetry - Reevaluation(s) Reevaluation #1: 05/12/22 01:36 Patient does have elevations of her hepatic enzymes with AST of 206, ALT of 119 and a bilirubin of 1.7 which does raise suspicion of gallbladder disease. I did review the computed tomography scan, gallbladder does appear to be on the large side. Patient still symptomatic. We'll treat with Dilaudid and order a gallbladder ultrasound. Reevaluation #2: 05/12/22 02:17 Gallbladder ultrasound shows no evidence of acute gallbladder pathology. Reevaluation #3: 05/12/22 02:17 Patient reevaluated and is improved. Patient states the pain is not nearly as bad. Chest Pain MDM - MDM Impression presents with sharp chest pain that started suddenly 3 hours ago. Radiates straight through to the back. CT aortogram ordered. Case discussed immediately with ED attending physician. EKG results discussed. Cardiac ischemia possible. Pulmonary embolism also within the differential. Seems less likely to be GI related but this is possible as well. Troponin is negative. Note the patient's computed tomography scan does show 50% stenosis of the distal abdominal aorta at the aortic bifurcation. Patient has seen vascular surgery and actually has an upcoming procedure scheduled. Going to admit the patient for atypical chest pain. Also make note that the patient does have elevated hepatic enzymes. Disposition Clinical Impression: Atypical chest pain, Hypertensive urgency, Elevated liver enzymes Disposition: ADMITTED IP TO THIS HOSP Is patient prescribed a controlled substance at d/c from ED?: No Referrals: None,Stated [Primary Care Provider] - 1-2 days Time of Disposition: 02:19 Decision to Admit Reason: Admit from EC Decision Time: 02:19
--- NOTE | 2022-05-12 00:33 | XR ---
EXAMINATION TYPE: XR chest 1V portable DATE OF EXAM: 05/12/2022 COMPARISON: 07/02/2019 HISTORY: Chest pain TECHNIQUE: FINDINGS: Heart and mediastinum are normal. Lungs are clear. Diaphragm is normal. Bony thorax is inta ct. IMPRESSION: Normal chest. No change.
[2022-05-12 00:44] LABS: Basophils % (A) 1 %; Eosinophils # (A) 0.2 k/uL (0-0.7); Eosinophils % (A) 3 %; HCT 36.5 % (34.0-46.0); HGB 12.5 gm/dL (11.4-16.0); Lymphocytes # (A) 0.9 k/uL (1.0-4.8); Lymphocytes % (A) 16 %; MCH 32.5 pg (25.0-35.0); MCHC 34.2 g/dL (31.0-37.0); Monocytes # (A) 0.2 k/uL (0-1.0); Monocytes % (A) 4 %; Neutrophils # (A) 4.3 k/uL (1.3-7.7); Neutrophils % (A) 75 %; Platelet Count 180 k/uL (150-450); RBC 3.84 m/uL (3.80-5.40); RDW 13.7 % (11.5-15.5); WBC 5.7 k/uL (3.8-10.6)
--- NOTE | 2022-05-12 00:49 | CT ---
EXAMINATION TYPE: CT angio thor/abd pel aorta DATE OF EXAM: 05/12/2022 COMPARISON: HISTORY: Chest pain CT DLP: 1894.8 mGycm Automated exposure control for dose reduction was used. CONTRAST: Performed with IV Contrast, patient injected with 100 mL of Isovue 370. CT angiogram of the chest abdomen pelvis. History chest pain. Back pain. Comparison none. FINDINGS: Images obtained from the thoracic inlet to the mid pelvis without and subsequently with the IV contra st. FINDINGS: The lungs are clear of consolidation. No pulmonary mass. No pleural effusion. Heart size is normal. N o pericardial effusion. There is no mediastinal adenopathy. There are no hilar masses. The pulmonary arteries appear normal. No filling defect. The thoracic aorta is intact. No aneurysm or dissection. The ascending aorta measures 2.9 cm. Liver spleen and stomach pancreas gallbladder appear normal. The bile ducts are not dilated. There is no adrenal mass. Kidneys show satisfactory contrast opacification. There is no hydronephrosis. Urete rs are not dilated. There is no retroperitoneal adenopathy. There is no sign of mesenteric edema. No ascites or free air. No bowel obstruction. There is mild atheromatous changes in the abdominal aorta. There is arterial flow in the celiac arter y and superior mesenteric artery. There is arterial flow in the renal and iliac arteries. No stenosis . No evidence of arterial aneurysm or dissection. There is plaque formation in the distal abdominal a annalee with some mild stenosis. The thoracic and lumbar spine appear intact. No compression fracture. IMPRESSION: No evidence of arterial aneurysm or dissection. No evidence of pulmonary embolism. There is some mild approximate 50% stenosis at the distal abdominal aorta at the aortic bifurcation. There is mild diffuse plaque formation in the abdominal aorta.
[2022-05-12 00:58] LABS: INR 1.2 (<1.2); Partial Thromboplastin Time 27.4 sec (22.0-30.0)
[2022-05-12 00:59] LABS: Albumin 3.8 g/dL (3.5-5.0); Calcium 8.8 mg/dL (8.4-10.2); Magnesium 1.7 mg/dL (1.6-2.3); Potassium 3.5 mmol/L (3.5-5.1); Total Bilirubin 1.7 mg/dL (0.2-1.3); Total Protein 7.2 g/dL (6.3-8.2)
[2022-05-12] MEDS ORDERED: MORPHINE SULFATE 4 MG/ML SYRINGE IV STA (01:13)
[2022-05-12] MEDS ORDERED: ASPIRIN 81 MG PO STA (01:14)
[2022-05-12] MEDS ORDERED: NITROGLYCERIN-D5W PMX 50 MG in DEXTROSE/WATER 1 250ML.BAG IV ONE (01:14)
[2022-05-12] MEDS ORDERED: HYDROmorphone 1 MG/ML 1 ML SYRINGE IVP STA (01:33)
--- NOTE | 2022-05-12 02:13 | US ---
EXAMINATION TYPE: US gallbladder DATE OF EXAM: 05/12/2022 COMPARISON: CT CLINICAL HISTORY: Chest pain, upper abdominal pain. Chest pain TECHNIQUE: Multiple sonographic images of the right upper quadrant are obtained. FINDINGS: EXAM MEASUREMENTS: Liver Length: 15.6 cm Gallbladder Wall: 0.2 cm CBD: 0.7 cm Right Kidney: 11.1 x 4.7 x 4.4 cm CERTIFIED CODER NOTES: Large pt body habitus- limited views Pancreas: 3mm panc duct visualized, tail obscured by overlying bowel gas Liver: Visualized portions appeared wnl Gallbladder: Somewhat contracted- pt states she is NPO/ lumen clear Evidence for sonographic Neely's sign: No CBD: Upper limits of normal for pt's age Right Kidney: No evidence of hydro, lower pole gassed out IMPRESSION: No gallstones. No dilated ducts. No focal liver defect.
[2022-05-12] MEDS ORDERED: NITROGLYCERIN OINT 1 INCH/GM PACKET TOPICAL STA (02:19)
[2022-05-12] MEDS ORDERED: METOPROLOL SUCCINATE (ER) 25 MG TAB.ER.24H PO STA (02:21)
[2022-05-12] MEDS ORDERED: NALOXONE 0.4 MG/ML 1 ML VIAL IV PRN (02:43)
--- NOTE | 2022-05-12 05:49 | P.HPIM ---
History of Present Illness H&P Date: 05/12/22 Chief Complaint: chest pain 52-year-old female with COPD, GERD, peripheral arterial disease Patient comes in with sudden onset retrosternal chest pain radiating straight to the back and the shoulders started all of a sudden while resting doing nothing associated with perfuse diaphoresis and heavy breathing. Initially she thought that it could be acid reflux she has long history of GERD but was not responding to her Protonix and Tums for which she grew concerned and decided come to the hospital for evaluation shows done a stress test about 3-4 years ago which reportedly negative. Otherwise she denies any heavy exertion recently she denies any exercise intolerance however she does have some arthritis and that's usually stops her from pushing herself too hard. She reports that she has steps at home and she would climb up and down multiple times during the day with no limitations related to exertional dyspnea. She denies any cardiac history otherwise. She does have severe peripheral arterial disease with vascular surgery planning on intervention toward the end of the month for her right lower extremity. She is currently on blood thinner for right lower extremity peripheral arterial disease Initial workup in the ED EKG showed normal sinus rhythm CT of the chest showed no evidence of aortic dissection no acute PE Gallbladder ultrasound showed no evidence of acute cholecystitis she otherwise denies any recent travel denies any history of blood clots. she was hospitalized recently at our facility however left AGAINST MEDICAL ADVICE and then went to a different facility which where she spent about 4 days was evaluated by vascular surgery at bedtime for severe peripheral arterial disease Review of Systems Pertinent positives as noted in HPI. All other systems were reviewed and are negative Past Medical History Past Medical History: Chest Pain / Angina Additional Past Medical History / Comment(s): BBB, chronic back pain, , peripheral arterial disease History of Any Multi-Drug Resistant Organisms: None Reported Past Surgical History: Hysterectomy Past Psychological History: No Psychological Hx Reported Past Alcohol Use History: Rare Past Drug Use History: None Reported - Past Family History Family Additional Family Medical History / Comment(s): no history of premature CAD Medications and Allergies Home Medications Medication Instructions Recorded Confirmed Type Pantoprazole [Protonix] 40 mg PO DAILY 04/14/22 04/14/22 History Allergies Allergy/AdvReac Type Severity Reaction Status Date / Time aspirin Allergy Unknown Verified 04/14/22 07:43 Penicillins Allergy Rash/Hives Verified 04/14/22 07:43 steriods Allergy Swelling Uncoded 04/13/22 16:55 Physical Exam Vitals: Vital Signs Temp Pulse Resp BP Pulse Ox 05/11/22 23:43 98 F 93 24 138/116 97 Intake and Output 05/11/22 05/11/22 05/12/22 14:59 22:59 06:59 Other: Weight 99.79 kg Constitutional: No acute distress, conversant, pleasant Eyes: Anicteric sclerae, moist conjunctiva, Pupils equal round reactive to light ENMT: NC/AT Oropharynx clear, no erythema, or exudates Neck: Supple, FROM, no masses, or JVD No carotid bruits No thyromegaly Lungs: Clear to auscultation Clear to percussion Normal respiratory effort, no accessory muscle use Cardiovascular: Heart regular in rate and rhythm, No murmurs, gallops, or rubs No peripheral edema reproducible pain upon palpation of the mid sternum and xiphoid process Abdominal: Soft Nontender, no guarding, rebound or rigidity Abdomen moving with respiration Normoactive bowel sounds No hepatomegaly, No splenomegaly No palpable mass No abdominal wall hernia noted Skin: Normal temperature, tone, texture, turgor No induration No subcutaneous nodules No rash, lesions No ulcers Extremities: No digital cyanosis No clubbing Pedal pulses intact over the left, weak over the right with immediate capillary refill Radial pulses intact and symmetrical No calf tenderness Psychiatric: Alert and oriented to person, place and time Appropriate affect fair judgement Neuro Muscles Strength 5/5 in all 4 extremities Sensation to light touch grossly present throughout Cranial nerves II-XII grossly intact No focal sensory deficits Lymphatics: no palpable cervical or supraclavicular , or inguinal lymph nodes Results CBC & Chem 7: 05/12/22 00:23 05/12/22 00:23 Labs: Abnormal Lab Results - Last 24 Hours (Table) 05/12/22 05/12/22 05/12/22 Range/Units 00:23 00:23 00:23 Lymphocytes # 0.9 L (1.0-4.8) k/uL PT 13.0 H (9.0-12.0) sec INR 1.2 H (<1.2) Carbon Dioxide 21 L (22-30) mmol/L Glucose 150 H (74-99) mg/dL Total Bilirubin 1.7 H (0.2-1.3) mg/dL AST 206 H (14-36) U/L ALT 119 H (4-34) U/L Alkaline Phosphatase 161 H (38-126) U/L Assessment and Plan Assessment: atypical chest pain rule out ACS EKG no acute changes CXR no acute pathology trops negative 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
[2022-05-12] MEDS ORDERED: NICOTINE 21MG/24HR PATCH TRANSDERM STA (05:56)
[2022-05-12] MEDS ORDERED: HEPARIN SODIUM,PORCINE/PF 5,000 UNIT/0.5 ML SYRINGE SQ SCH (08:00)
[2022-05-12] MEDS: ACETAMINOPHEN TAB 325 MG TAB PO PRN (08:33)
[2022-05-12] MEDS: PANTOPRAZOLE 40 MG TABLET PO SCH (08:34)
--- NOTE | 2022-05-12 08:44 | P.CRDCN ---
History of Present Illness History of present illness: This is a 52 year old female with a past medical history of peripheral vascular disease with plan for right lower extremity stenting with Dr. Zavaleta on 06/01/2022, GERD and chronic nicotine dependence, asthma/copd. Patient did see Dr. Romo in the office in 2019, She does not currently follow with a fiction writer. We are asked to see the patient in consultation for chest pain. Patient presents with midsternal and epigastric chest discomfort that began yesterday evening, when she was sitting down. It radiated to her back. Non- exertional. She had associated nausea and some mild shortness of breath, she has been having nausea and vomiting for about 1 week. It is aggravated by palpation to the epigastric region and with deep breath. It is constant and has not resolved since yesterday. She had no relief with Nitro. Some relief with Zofran, dilaudid and morphine. She has no history of CAD, [place], Stroke , diabetes, hypertension. She is a current every day smoker, states she is currently down to less than 1/2 PPD. DIAGNOSTICS * EKG reveals sinus rhythm, heart rate 77, left bundle branch block, no significant STT wave abnormalities suggest acute ischemia. Prior EKG in 2014 with similar findings * Lexiscan stress test in the office 08/2019 negative for reversible ischemia * Echocardiogram 09/2019 reported EF 60%, trace aortic regurgitation, mild mitral regurgitation, mild tricuspid regurgitation * Chest xray no acute cardiopulmonary process * Thoracic aorta CT reported no aneurysm or dissection, ascending aorta measures 2.9 cm, no evidence of pulmonary embolism, some mild proximal 50% stenosis with distal abdominal aorta at the aortic bifurcation * Gallbladder ultrasound reported Limited Views, no gallstones, no bile ducts, no focal liver defect. * Laboratory reviewed, CBC unremarkable, d-dimer negative, sodium 137, potassium 3.5, BUN 12.7 g 0.9, troponin negative 3, total bilirubin 1.7, AST 206, ALT 119, alkaline phosphatase 162 * Current home medications include Xarelto taper, Spiriva, Protonix, troponin, nicotine patch, albuterol, Qvar REVIEW OF SYSTEMS At the time of my exam: CONSTITUTIONAL: Denies fever or chills. CARDIOVASCULAR: Denies chest pain, shortness of breath, orthopnea, PND or palpitations. RESPIRATORY: Denies cough. GASTROINTESTINAL: Denies abdominal pain, diarrhea, constipation, nausea or vomiting. MUSCULOSKELETAL: Denies myalgias. NEUROLOGIC: Denies numbness, tingling, headache or weakness. ENDOCRINE: Denies fatigue, weight change, polydipsia or polyurina. GENITOURINARY: Denies burning, hematuria or urgency with micturation. HEMATOLOGIC: Denies history of anemia or bleeding. PHYSICAL EXAMINATION Blood pressure 109/79, heart rate 79, afebrile, saturations 95% room air CONSTITUTIONAL: No apparent distress. HEENT: Head is normocephalic. Pupils are equal, round. Sclerae anicteric. Mucous membranes of the mouth are moist. No JVD. No carotid bruit. CHEST EXAMINATION: Lungs are clear to auscultation. No chest wall tenderness is noted on palpation or with deep breathing. HEART EXAMINATION: Regular rate and rhythm. S1, S2 heard. No murmurs, gallops or rub. ABDOMEN: Soft, nontender. Positive bowel sounds. EXTREMITIES: difficult to palpate right pedal pulses. 2+ other peripheral pulses, no lower extremity edema and no calf tenderness. SKIN: warm, dry NEUROLOGIC EXAMINATION: Patient is awake, alert and oriented x3. ASSESSMENT Epigastric discomfort, does not appear to be cardiac in etiology Elevated Bilirubin Elevated LFTs Nausea and Vomiting Peripheral vascular disease with plan for right lower extremity stenting with Dr. Zavaleta on 06/01/2022 GERD Chronic nicotine dependence PLAN An acute coronary event has been ruled out with no EKG evidence of ischemia and negative cardiac enzymes. Obtain 2D echocardiogram and doppler study to assess cardiac structure and function. Rest of management per primary Smoking cessation discussed and highly recommended. Thank you kindly for this consultation. Nurse practitioner note has been reviewed by physician. Signing provider agrees with the documented findings, assessment, and plan of care. Past Medical History Past Medical History: Chest Pain / Angina Additional Past Medical History / Comment(s): BBB, chronic back pain, , peripheral arterial disease History of Any Multi-Drug Resistant Organisms: None Reported Past Surgical History: Hysterectomy Past Psychological History: No Psychological Hx Reported Past Alcohol Use History: Rare Past Drug Use History: None Reported - Past Family History Family Family Medical History: No Reported History Additional Family Medical History / Comment(s): no history of premature CAD Medications and Allergies Home Medications Medication Instructions Recorded Confirmed Type Pantoprazole [Protonix] 40 mg PO DAILY 04/14/22 05/12/22 History Albuterol Inhaler [Ventolin Hfa 2 puff INHALATION RT-Q6H PRN 05/12/22 05/12/22 History Inhaler] Beclomethasone Dip 80 Mcg/Puff 1 puff INHALATION RT-BID 05/12/22 05/12/22 History [Qvar 80 mcg] Nicotine 21Mg/24Hr Patch [Habitrol] 1 patch TRANSDERM DAILY 05/12/22 05/12/22 History Oxybutynin Chloride [Ditropan] 5 mg PO BID 05/12/22 05/12/22 History Rivaroxaban [Xarelto Starter Pack] See Taper PO DIRECTED 05/12/22 05/12/22 History Tiotropium 18 Mcg/Puff [Spiriva] 1 puff INHALATION RT-DAILY 05/12/22 05/12/22 History Allergies Allergy/AdvReac Type Severity Reaction Status Date / Time aspirin Allergy Unknown Verified 05/12/22 07:53 Penicillins Allergy Rash/Hives Verified 05/12/22 07:53 steriods Allergy Swelling Uncoded 04/13/22 16:55 Physical Exam Vitals: Vital Signs Temp Pulse Resp BP Pulse Ox 05/12/22 06:56 79 20 109/79 95 05/11/22 23:43 98 F 93 24 138/116 97 Intake and Output 05/11/22 05/12/22 05/12/22 22:59 06:59 14:59 Other: Weight 99.79 kg Results 05/12/22 00:23 05/12/22 00:23 Cardiac Enzymes 05/12/22 05/12/22 05/12/22 Range/Units 00:23 00:23 03:26 AST 206 H (14-36) U/L Troponin I <0.012 <0.012 (0.000-0.034) ng/mL Coagulation 05/12/22 Range/Units 00:23 PT 13.0 H (9.0-12.0) sec APTT 27.4 (22.0-30.0) sec CBC 05/12/22 Range/Units 00:23 WBC 5.7 (3.8-10.6) k/uL RBC 3.84 (3.80-5.40) m/uL Hgb 12.5 (11.4-16.0) gm/dL Hct 36.5 (34.0-46.0) % Plt Count 180 (150-450) k/uL Comprehensive Metabolic Panel 05/12/22 Range/Units 00:23 Sodium 137 (137-145) mmol/L Potassium 3.5 (3.5-5.1) mmol/L Chloride 105 (98-107) mmol/L Carbon Dioxide 21 L (22-30) mmol/L BUN 12 (7-17) mg/dL Creatinine 0.95 (0.52-1.04) mg/dL Glucose 150 H (74-99) mg/dL Calcium 8.8 (8.4-10.2) mg/dL AST 206 H (14-36) U/L ALT 119 H (4-34) U/L Alkaline Phosphatase 161 H (38-126) U/L Total Protein 7.2 (6.3-8.2) g/dL Albumin 3.8 (3.5-5.0) g/dL Current Medications Generic Name Dose Route Start Last Admin Trade Name Freq PRN Reason Stop Dose Admin Acetaminophen 650 mg 05/12/22 02:43 Acetaminophen Tab 325 Mg Tab PO Q6HR PRN Mild Pain or Fever > 100.5 Heparin Sodium (Porcine) 5,000 unit 05/12/22 08:00 Heparin Sodium,Porcine/Pf 5,000 Unit/0.5 Ml Syringe SQ Q8HR DEE Morphine Sulfate 4 mg 05/12/22 02:43 Morphine Sulfate 4 Mg/Ml Syringe IV Q4HR PRN Severe Pain Naloxone HCl 0.2 mg 05/12/22 02:43 Naloxone 0.4 Mg/Ml 1 Ml Vial IV Q2M PRN Opioid Reversal Ondansetron HCl 4 mg 05/12/22 02:43 Ondansetron 4 Mg/2 Ml Vial IVP Q8HR PRN Nausea And Vomiting Pantoprazole Sodium 40 mg 05/12/22 07:30 Pantoprazole 40 Mg Tablet [facility] Intake and Output 05/11/22 05/12/22 05/12/22 22:59 06:59 14:59 Other: Weight 99.79 kg 05/12/22 00:23 05/12/22 00:23
[2022-05-12 10:49] LABS: Chol/HDL Ratio 5.04 Ratio; LDL Cholesterol,Calculated 147.3 mg/dL (0.0-131.0); VLDL Calculation 19.36 mg/dL (5.00-40.00)
--- NOTE | 2022-05-12 12:02 | CA ---
Transthoracic Echo Report Name: Natalie Thomas Age: 52 Gender: F : 1970 Exam Date: 05/12/2022 08:18 Exam Location: [facility] Ht (in): 65 Wt (lb): 220 Ordering Physician: Suni Jiang Attending/Referring Phys: Plant Wrapper Cecille Keller RDCS Procedure CPT: Indications: LV function Cardiac Hx: Technical Quality: Good Contrast 1: Total Dose (mL): Contrast 2: Total Dose (mL): MEASUREMENTS (Male / Female) Normal Values 2D ECHO LV Diastolic Diameter PLAX 4.5 cm 4.2 - 5.9 / 3.9 - 5.3 cm LV Systolic Diameter PLAX 3.1 cm IVS Diastolic Thickness 1.0 cm 0.6 - 1.0 / 0.6 - 0.9 cm LVPW Diastolic Thickness 1.0 cm 0.6 - 1.0 / 0.6 - 0.9 cm LV Relative Wall Thickness 0.4 RV Internal Dim ED PLAX 1.9 cm M-MODE Aortic Root Diameter MM 3.1 cm LA Systolic Diameter MM 3.5 cm LA Ao Ratio MM 1.1 MV E Point Septal Separation 0.4 cm AV Cusp Separation MM 1.8 cm DOPPLER AV Peak Velocity 190.8 cm/s AV Peak Gradient 14.6 mmHg MV Area PHT 3.0 cm??? MR Peak Velocity 109.4 cm/s MR Peak Gradient 4.8 mmHg Mitral E Point Velocity 97.6 cm/s Mitral A Point Velocity 92.4 cm/s Mitral E to A Ratio 1.1 MV Deceleration Time 254.0 ms TR Peak Velocity 169.1 cm/s TR Peak Gradient 11.4 mmHg Right Ventricular Systolic Press 16.3 mmHg FINDINGS Left Ventricle Mildly increased septal wall thickness. Left ventricular ejection fraction is estimated at 55-60 %. Left ventricular cavity size normal. Right Ventricle The right ventricle is normal in size and function. Right Atrium The right atrium is normal in size. Left Atrium The left atrium is normal in size. Mitral Valve Structurally normal mitral valve without significant stenosis or prolapse. There is trace mitral regurgitation. Aortic Valve Structurally normal aortic valve without significant sclerosis or stenosis. There is no aortic regurgitation. Tricuspid Valve Structurally normal tricuspid valve without significant stenosis. Pulmonary artery systolic pressure is normal. Trace tricuspid regurgitation. Pulmonic Valve Structurally normal pulmonic valve without significant stenosis. There is no pulmonic regurgitation. Pericardium Normal pericardium without effusion. Aorta Normal aortic root dimension. CONCLUSIONS Normal LV systolic function Previewed by: Dr. Andi Romo MD (Electronically Signed) Final Date: 12 May 2022 12:01
[2022-05-12 13:12] LABS: HCT 35.8 % (34.0-46.0); HGB 11.7 gm/dL (11.4-16.0); MCH 31.7 pg (25.0-35.0); MCHC 32.7 g/dL (31.0-37.0); MCV 96.8 fL (80.0-100.0); Mean Platelet Volume 8.6; Platelet Count 142 k/uL (150-450); RDW 13.3 % (11.5-15.5)
[2022-05-12 13:23] LABS: ALT 173 U/L (4-34); AST 202 U/L (14-36); African American GFR (CKD) 79 (>60 ml/min/1.73 sqM); Albumin 3.8 g/dL (3.5-5.0); Albumin/Globulin Ratio 1.1; Alkaline Phosphatase 176 U/L (38-126); Anion Gap 10 mmol/L; Blood Urea Nitrogen 12 mg/dL (7-17); Calcium 8.5 mg/dL (8.4-10.2); Carbon Dioxide 25 mmol/L (22-30); Chloride 103 mmol/L (98-107); Globulin 3.6 g/dL; Glucose 95 mg/dL (74-99); Non-African American GFR(CKD) 68 (>60 ml/min/1.73 sqM); Potassium 3.8 mmol/L (3.5-5.1); Sodium 138 mmol/L (137-145); Total Bilirubin 1.1 mg/dL (0.2-1.3); Total Protein 7.4 g/dL (6.3-8.2)
--- NOTE | 2022-05-12 15:45 | P.PN ---
Subjective Progress Note Date: 05/12/22 Hospital course: Patient is a very pleasant 52-year-old female with a past medical history of COPD and DVT on Xarelto. She presented to the emergency department with a chief complaint of chest pain. Patient reports experiencing sharp pain that radiates into her back worse upon taking a deep breath and with palpation. Patient denies having any headache, lightheadedness, dizziness, palpitations, shortness of breath at rest, abdominal pain, nausea, vomiting, or any other complaints. In the emergency department, patient underwent full evaluation. She was found to have transaminitis with AST of 206, ALT of 119, alkaline phosphatase 161 and total bili of 1.7. Troponin negative at less than 0.012. ProBNP 163, and d- dimer 0.49. Chest x-ray negative for acute cardiopulmonary process. EKG showing normal sinus rhythm with a left bundle branch block at 77 bpm, unchanged from previous EKG completed 05/21/2015. CT angiogram of chest abdomen and pelvis revealing no evidence of arterial aneurysm or dissection and no evidence of pulmonary emboli, liver reported to appear normal with reports that the bile ducts were not dilated. Gallbladder ultrasound completed and was negative showing no gallstones, no dilated ducts, in no focal liver defect. Patient was admitted under our services with consultation to cardiology. Physical exam: Vital signs reviewed and stable. General: Nontoxic, no distress and appears stated age. Derm: Skin warm and dry, normal coloration for ethnicity. Head: Atraumatic, normocephalic and symmetric. Eyes: EOMs intact, no lid lag, and anicteric sclera Mouth: no lip lesions, mucus membranes moist Cardiovascular: regular rate and rhythm with normal S1S2, no murmur, positive posterior tibial pulses bilaterally, and cap refill < 2 seconds. Lungs: Respirations even, regular, and unlabored on room air. Lungs CTA bilaterally, no rhonchi, no rales, no wheezing, and no accessory muscle usage. Abdominal: soft, epigastric and right upper quadrant pain/discomfort with palpation, no guarding, no appreciable organomegaly Ext: ROM intact. No gross muscle atrophy, no edema, no contractures Neuro: Speech clear, face symmetrical and CN II-XII grossly intact with no noted focal neuro deficits Psych: Alert and oriented to person, place, time, and situation. Appropriate and pleasant affect. Assessment and Plan of Care: Chest pain, rule out acute coronary event -Cardiology consult, appreciate further recommendations -Telemetry monitoring -Trend troponins -Cardiac diet, NPO at midnight -Aspirin, atorvastatin, and metoprolol -Lipid profile with a.m. labs. -Echocardiogram Transaminitis secondary to unclear etiology does not appear to be chronic Epigastric/right upper quadrant pain/discomfort -Gallbladder ultrasound completed and was negative showing no gallstones, no dilated ducts, in no focal liver defect. -Order placed for repeat CMP to monitor for improvement of liver function. -Acute hepatitis panel to be completed -Gen. surgery was consulted -Ultrasound negative for acute coronary however patient continues to have epigastric and right upper quadrant pain/discomfort, consult placed to general surgery for further evaluation. Right lower extremity DVT -Patient reports she is currently still on starter pack for Xarelto taking 15 mg twice a day -Continue anticoagulation with Xarelto -Continue to follow up outpatient with vascular surgery Dr. Zavaleta on 06/01/22 for scheduled stenting Nicotine dependence -Recommend smoking cessation -Nicotine patch CODE STATUS: Full code DVT prophylaxis: Xarelto Discussed with: Patient and RN Anticipated discharge date: 1-[address]: Home A total of 43 minutes was spent on the care of this complex patient more than 50% of the time was spent in counseling and care coordination. Objective - Vital Signs Vital signs: Vital Signs Temp 98 F 05/11/22 23:43 Pulse 79 05/12/22 06:56 Resp 20 05/12/22 06:56 BP 109/79 05/12/22 06:56 Pulse Ox 95 05/12/22 06:56 FiO2 Intake & Output 05/11/22 05/12/22 05/12/22 18:59 06:59 18:59 Weight 99.79 kg - Labs CBC & Chem 7: 05/12/22 12:38 05/12/22 12:38 Labs: Abnormal Lab Results - Last 24 Hours (Table) 05/12/22 05/12/22 05/12/22 Range/Units 00:23 00:23 00:23 Lymphocytes # 0.9 L (1.0-4.8) k/uL PT 13.0 H (9.0-12.0) sec INR 1.2 H (<1.2) Carbon Dioxide 21 L (22-30) mmol/L Glucose 150 H (74-99) mg/dL Total Bilirubin 1.7 H (0.2-1.3) mg/dL AST 206 H (14-36) U/L ALT 119 H (4-34) U/L Alkaline Phosphatase 161 H (38-126) U/L
[2022-05-12] MEDS: MORPHINE SULFATE 4 MG/ML SYRINGE IV PRN (18:14)
[2022-05-12] MEDS: FLUTICASONE 110 MCG INHALER INHALATION SCH (20:02)
[2022-05-12] MEDS: RIVAROXABAN 15 MG TAB PO SCH (20:37)
[2022-05-12] MEDS: OXYBUTYNIN CHLORIDE 5 MG TAB PO SCH (20:37)
[2022-05-13 00:20] LABS: Hepatitis A Antibody IgM Nonreactive (Nonreactive); Hepatitis B Core IgM Nonreactive (Nonreactive); Hepatitis B Surface Antigen Nonreactive (Nonreactive); Hepatitis C IgG Antibody Nonreactive (Nonreactive)
[2022-05-13] MEDS: FLUTICASONE 110 MCG INHALER INHALATION SCH ×2 (08:21→20:02)
[2022-05-13] MEDS: IPRATROPIUM 0.5 MG/2.5 ML NEBU INHALATION SCH ×4 (08:22→20:02)
--- NOTE | 2022-05-13 09:32 | NM ---
EXAMINATION TYPE: NM hepatobiliary w CCK DATE OF EXAM: 05/13/2022 COMPARISON: Gallbladder ultrasound 05/12/2022. HISTORY: Transaminitis, right upper quadrant/epigastric tenderness. TECHNIQUE: After the intravenous administration of 5.1 mCi Tc 99m Mebrofenin hepatobiliary scintigrap hy is performed. Immediate images post injection. FINDINGS: There is satisfactory initial accumulation of tracer by the liver. The gallbladder is visualized wit hin 24 minutes. Trace small bowel activity is noted within 1 hour 30 minutes. At one hour CCK was ad ministered, patient was injected with 2.0 mcg of Kinevac, and gallbladder ejection fraction is calcul ated at 0 %. Therefore there is no scintigraphic evidence of cystic or common bile duct obstruction. IMPRESSION: * No scintigraphic evidence of cystic duct obstruction to suggest acute cholecystitis. * Marked gallbladder biliary dyskinesia.
[2022-05-13 09:34] LABS: African American GFR (CKD) 70.7 (60.0-200.0); Albumin 3.6 g/dL (3.8-4.9); Albumin/Globulin Ratio 1.23 (1.60-3.17); Anion Gap 8.6 mmol/L (10.00-18.00); BUN/Creat Ratio 13.24 Ratio (12.00-20.00); Blood Urea Nitrogen 13.9 mg/dL (9.0-27.0); Calcium 8.9 mg/dL (8.7-10.3); Carbon Dioxide 25.3 mmol/L (20.0-27.5); Potassium 4.3 mmol/L (3.5-5.5); Total Bilirubin 0.6 mg/dL (0.30-1.20); Total Protein 6.6 g/dL (6.2-8.2)
[2022-05-13] MEDS: RIVAROXABAN 15 MG TAB PO SCH (09:57)
[2022-05-13] MEDS: OXYBUTYNIN CHLORIDE 5 MG TAB PO SCH ×2 (09:57→21:17)
[2022-05-13] MEDS: NICOTINE 21MG/24HR PATCH TRANSDERM SCH (09:57)
[2022-05-13] MEDS: PANTOPRAZOLE 40 MG TABLET PO SCH (09:57)
[2022-05-13 10:56] LABS: Basophils # (A) 0.03 X 10*3/uL (0.00-0.10); Basophils % (A) 0.7 %; Eosinophils % (A) 4.3 %; HCT 33.7 % (37.2-46.3); Immature Grans, Automated 0.4 %; Lymphocytes # (A) 1.76 X 10*3/uL (0.90-5.00); Lymphocytes % (A) 38.2 %; MCH 31.5 pg (27.0-32.0); MCHC 32.6 g/dL (32.0-37.0); MCV 96.6 fL (80.0-97.0); Monocytes # (A) 0.28 X 10*3/uL (0.20-1.00); Monocytes % (A) 6.1 %; NRBC Per 100 WBC 0 /100 WBCS (0.0-0.0); Neutrophils # (A) 2.32 X 10*3/uL (1.80-7.70); Neutrophils % (A) 50.3 %; Platelet Count 144 X 10*3/uL (140-440); RBC 3.49 X 10*6/uL (4.10-5.20); RDW 13.3 % (11.5-14.5); WBC 4.61 X 10*3/uL (4.50-10.00)
--- NOTE | 2022-05-13 11:26 | P.PN ---
Subjective Progress Note Date: 05/13/22 This is a 52 year old female with a past medical history of peripheral vascular disease with plan for right lower extremity stenting with Dr. Zavaleta on 06/01/2022, GERD and chronic nicotine dependence, asthma/copd. Patient did see Dr. Romo in the office in 2019, She does not currently follow with a card iologist. We are asked to see the patient in consultation for chest pain. Patient presents with midsternal and epigastric chest discomfort that began yesterday evening. She had associated nausea and some mild shortness of breath, for about 1 week. She had no relief with Nitro. Some relief with Zofran, dilaudid and morphine. She is a current every day smoker. patient seen resting comfortable in bed in signs of acute distress, she reports epigastric pain denies chest pain and increasing shortness of breath. Vital signs remained stable Echocardiogram reviewed, normal LV. Chest pain is atypical and non-cardiac in origin Patient awaiting results a Hepatobiliary scan Objective - Vital Signs Vital signs: Vital Signs Temp 98.6 F 05/13/22 02:23 Pulse 75 05/13/22 02:23 Resp 18 05/13/22 09:44 BP 133/76 05/13/22 02:23 Pulse Ox 96 05/13/22 02:23 FiO2 Intake & Output 05/12/22 05/13/22 05/13/22 18:59 06:59 18:59 Weight 99.79 kg Other: Voiding Method Toilet # Voids 1 - Labs CBC & Chem 7: 05/13/22 05:22 05/13/22 05:22 Labs: Abnormal Lab Results - Last 24 Hours (Table) 05/12/22 05/12/22 05/12/22 Range/Units 06:17 12:38 12:38 RBC 3.70 L (3.80-5.40) m/uL Plt Count 142 L (150-450) k/uL Anion Gap (10.00-18.00) mmol/L AST 202 H (14-36) U/L ALT 173 H (4-34) U/L Alkaline Phosphatase 176 H (38-126) U/L Albumin (3.8-4.9) g/dL Albumin/Globulin Ratio (1.60-3.17) g/dL Cholesterol 208.00 H (0.00-200.00) mg/dL LDL Cholesterol, Calc 147.3 H (0.0-131.0) mg/dL 05/13/22 Range/Units 05:22 RBC (3.80-5.40) m/uL Plt Count (150-450) k/uL Anion Gap 8.60 L (10.00-18.00) mmol/L AST 88 H (14-36) U/L ALT 132 H (4-34) U/L Alkaline Phosphatase 146 H (38-126) U/L Albumin 3.6 L (3.8-4.9) g/dL Albumin/Globulin Ratio 1.23 L (1.60-3.17) g/dL Cholesterol (0.00-200.00) mg/dL LDL Cholesterol, Calc (0.0-131.0) mg/dL Assessment and Plan Assessment: ASSESSMENT Epigastric discomfort, does not appear to be cardiac in etiology Elevated Bilirubin Elevated LFTs Nausea and Vomiting Peripheral vascular disease with plan for right lower extremity stenting with Dr. Zavaleta on 06/01/2022 GERD Chronic nicotine dependence Plan: An acute coronary event has been ruled out with no EKG evidence of ischemia and negative cardiac enzymes. Obtain 2D echocardiogram and doppler study to assess cardiac structure and function. Rest of management per primary Patient is clear from a cardiac standpoint. They are an acceptable surgical risk candidate if necessary, for surgery and anesthesia. The above impression and plan of care have been discussed and directed by the signing physician. Татьяна Odell, nurse practitioner, acting as scribe for signing physician.
[2022-05-13] MEDS: ACETAMINOPHEN TAB 325 MG TAB PO PRN (11:50)
[2022-05-13] MEDS ORDERED: DEXAMETHASONE SOD PHOSPHATE 4 MG/ML 1 ML VIAL IV ONE (12:00)
--- NOTE | 2022-05-13 14:03 | P.GSCN ---
History of Present Illness Consult date: 05/13/22 History of present illness: CHIEF COMPLAINT: Chest pain and epigastric abdominal pain HISTORY OF PRESENT ILLNESS: This is a 52-year-old female who presented to the hospital with complaints initially of chest pain. However, the pain is located mostly in the epigastric area. Patient reports symptoms started 3 hours prior to her admission. She had been having nausea and vomiting intermittently over the last week. Her last episode of vomiting was yesterday evening. She denies any fever chills or sweats. She reports regular bowel movements. She does have severe peripheral vascular disease and is scheduled for stenting on her leg at the end of this month with Dr. Zavaleta. She's also on Xarelto. Patient seen and evaluated by cardiology in regards to her chest pain and they reported no evidence of acute coronary syndrome. Patient did have elevated LFTs. Abdominal ultrasound had showed no gallstones and was essentially unremarkable. HIDA scan completed showing no evidence of acute cholecystitis but did reveal marked gallbladder biliary dyskinesia. Gallbladder ejection fraction is Related to 0%. Patient seen and examined with Dr. grijalva. PAST MEDICAL HISTORY: Peripheral vascular disease PAST SURGICAL HISTORY: Hysterectomy MEDICATIONS: See list. ALLERGIES: See list. SOCIAL HISTORY: No illicit drug use. REVIEW OF SYSTEMS: CONSTITUTIONAL: Denies fever or chills. HEENT: Denies blurred vision, vision changes, or eye pain. Denies hemoptysis CARDIOVASCULAR: Denies chest pain or pressure. RESPIRATORY: No shortness of breath. GASTROINTESTINAL: See HPI for pertinent findings HEMATOLOGIC: Denies bleeding disorders. GENITOURINARY: Denies any blood in urine or increased urinary frequency. SKIN: Denies pruitis. Denies rash. PHYSICAL EXAM: VITAL SIGNS: Reviewed GENERAL: Well-developed in no acute distress. HEENT: No sclera icterus. Extraocular movements grossly intact. Moist buccal mucosa. Head is atraumatic, normocephalic. No nasal drainage. ABDOMEN: Soft. Nondistended. Tenderness with palpation in the epigastric area NEUROLOGIC: Alert and oriented. Cranial nerves II through XII grossly intact. LABORATORY DATA: WBC is 4.61 HGB 11 platelets 144 Sodium is 137 potassium 4.3 creatinine 1.1 Total bilirubin elevated at 1.7 down to 0.60 AST 206 down to 88 ALT 119 down to 132 alk phos 161 down to 146 Troponins negative 3 Hepatitis panel negative IMAGING: Ultrasound shows no gallstones. No dilated ducts. No focal liver defect. HIDA shows no evidence for cystic duct obstruction tissue just acute cholecystitis. Marked gallbladder biliary dyskinesia with EF of 0% ASSESSMENT: 1. Gallbladder biliary dyskinesia 2. Epigastric abdominal pain 3. Elevated LFTs trending down PLAN: -Patient scheduled for laparoscopic cholecystectomy tomorrow with Dr. grijalva -Patient can have full liquid diet today -Nothing by mouth after midnight -Continue to hold Xarelto -Continue supportive care Thank you for this consultation Physician Integration Director note has been reviewed by physician. Signing provider agrees with the documented findings, assessment, and plan of care. Past Medical History Past Medical History: Asthma, Chest Pain / Angina, COPD, GERD/Reflux, Pneumonia, Rheumatoid Arthritis (RA), Vascular Disorder Additional Past Medical History / Comment(s): 04/03/22 R foot discoloration/pt left AMA, PAD/pt to have R leg stenting 06/01/22, RA in multiple joints but worse in bilateral knees/hips, BBB, lupus, migraines, bladder leakage. History of Any Multi-Drug Resistant Organisms: None Reported Past Surgical History: Hysterectomy Additional Past Surgical History / Comment(s): Recent angiogram at [facility], laser eye surgery bilaterally/twice. Past Anesthesia/Blood Transfusion Reactions: No Reported Reaction Smoking Status: Current every day smoker, Light tobacco smoker - Past Family History Father Family Medical History: Liver Disease Additional Family Medical History / Comment(s): Father was an alcoholic and had liver cirrhosis. He is . Mother History Unknown: Yes Family Family Medical History: No Reported History Additional Family Medical History / Comment(s): no history of premature CAD Medications and Allergies Home Medications Medication Instructions Recorded Confirmed Type Pantoprazole [Protonix] 40 mg PO DAILY 04/14/22 05/12/22 History Albuterol Inhaler [Ventolin Hfa 2 puff INHALATION RT-Q6H PRN 05/12/22 05/12/22 History Inhaler] Beclomethasone Dip 80 Mcg/Puff 1 puff INHALATION RT-BID 05/12/22 05/12/22 History [Qvar 80 mcg] Nicotine 21Mg/24Hr Patch [Habitrol] 1 patch TRANSDERM DAILY 05/12/22 05/12/22 History Oxybutynin Chloride [Ditropan] 5 mg PO BID 05/12/22 05/12/22 History Rivaroxaban [Xarelto Starter Pack] See Taper PO DIRECTED 05/12/22 05/12/22 History Tiotropium 18 Mcg/Puff [Spiriva] 1 puff INHALATION RT-DAILY 05/12/22 05/12/22 History Allergies Allergy/AdvReac Type Severity Reaction Status Date / Time aspirin Allergy Unknown Verified 05/12/22 07:53 Penicillins Allergy Rash/Hives Verified 05/12/22 07:53 steriods Allergy Swelling Uncoded 04/13/22 16:55 Surgical - Exam Vital Signs Temp Pulse Resp BP Pulse Ox 98 F 93 24 138/116 97 05/11/22 23:43 05/11/22 23:43 05/11/22 23:43 05/11/22 23:43 05/11/22 23:43 Results - Labs 05/13/22 05:22 05/13/22 05:22 Abnormal Lab Results - Last 24 Hours (Table) 05/13/22 05/13/22 Range/Units 05:22 05:22 RBC 3.49 L (4.10-5.20) X 10*6/uL Hgb 11.0 L (12.0-15.0) g/dL Hct 33.7 L (37.2-46.3) % Anion Gap 8.60 L (10.00-18.00) mmol/L AST 88 H (13-35) U/L ALT 132 H (8-44) U/L Alkaline Phosphatase 146 H (41-126) U/L Albumin 3.6 L (3.8-4.9) g/dL Albumin/Globulin Ratio 1.23 L (1.60-3.17) g/dL Diabetes panel 05/13/22 Range/Units 05:22 Sodium 137 (135-145) mmol/L Potassium 4.3 (3.5-5.5) mmol/L Chloride 103 (96-109) mmol/L Carbon Dioxide 25.3 (20.0-27.5) mmol/L BUN 13.9 (9.0-27.0) mg/dL Creatinine 1.1 (0.6-1.5) mg/dL Glucose 106 (70-110) mg/dL Calcium 8.9 (8.7-10.3) mg/dL AST 88 H (13-35) U/L ALT 132 H (8-44) U/L Alkaline Phosphatase 146 H (41-126) U/L Total Protein 6.6 (6.2-8.2) g/dL Albumin 3.6 L (3.8-4.9) g/dL Calcium panel 05/13/22 Range/Units 05:22 Calcium 8.9 (8.7-10.3) mg/dL Albumin 3.6 L (3.8-4.9) g/dL Pituitary panel 05/13/22 Range/Units 05:22 Sodium 137 (135-145) mmol/L Potassium 4.3 (3.5-5.5) mmol/L Chloride 103 (96-109) mmol/L Carbon Dioxide 25.3 (20.0-27.5) mmol/L BUN 13.9 (9.0-27.0) mg/dL Creatinine 1.1 (0.6-1.5) mg/dL Glucose 106 (70-110) mg/dL Calcium 8.9 (8.7-10.3) mg/dL Adrenal panel 05/13/22 Range/Units 05:22 Sodium 137 (135-145) mmol/L Potassium 4.3 (3.5-5.5) mmol/L Chloride 103 (96-109) mmol/L Carbon Dioxide 25.3 (20.0-27.5) mmol/L BUN 13.9 (9.0-27.0) mg/dL Creatinine 1.1 (0.6-1.5) mg/dL Glucose 106 (70-110) mg/dL Calcium 8.9 (8.7-10.3) mg/dL Total Bilirubin 0.60 (0.30-1.20) mg/dL AST 88 H (13-35) U/L ALT 132 H (8-44) U/L Alkaline Phosphatase 146 H (41-126) U/L Total Protein 6.6 (6.2-8.2) g/dL Albumin 3.6 L (3.8-4.9) g/dL
[2022-05-13] MEDS: LACTATED RINGERS 1,000 ML IV SCH (15:16)
--- NOTE | 2022-05-13 18:04 | P.PN ---
Subjective Progress Note Date: 05/13/22 Principal diagnosis: Patient was seen and examined. No acute events overnight. Patient continues to reports epigastric pain. Pain is 6/10 in severity. No radiation. One episode on N/V yesterday. General: [non toxic], [no distress], [appears at stated age] Derm: [warm], [dry] Head: [atraumatic], [normocephalic], [symmetric] Eyes: [EOMI], [no lid lag], [anicteric sclera] Mouth: [no lip lesion], [mucus membranes moist] Cardiovascular: [S1S2 reg], [no murmur], Lungs: [Decreased breath bilateral], [no rhonchi, no rales] , [no accessory muscle use] Abdominal: [soft], [tenderness to palpation in the epigastric area without rebound], [no guarding], [no appreciable organomegaly] Ext: [no gross muscle atrophy], [no edema], [no contractures] Neuro: [no focal neuro deficits] Psych: [Alert], [oriented], [appropriate affect] Chest pain, rule out acute coronary event -Cardiology consult, appreciate further recommendations -Telemetry monitoring -Trend troponins -Cardiac diet -Aspirin, atorvastatin, and metoprolol -Lipid profile shows total cholesterol 208, LDL 147 -Echocardiogram shows EF 55-60% with no wall motion abnormalities Transaminitis secondary to unclear etiology does not appear to be chronic Epigastric/right upper quadrant pain/discomfort -Gallbladder ultrasound completed and was negative showing no gallstones, no dilated ducts, in no focal liver defect. -Monitor LFTs -Acute hepatitis panel negative -Nuclear scan shows marketed gallbladder biliary dyskinesia -Gen. surgery consulted, plans for laparoscopic cholecystectomy tomorrow -Ultrasound negative for acute coronary however patient continues to have epigastric and right upper quadrant pain/discomfort, consult placed to general surgery for further evaluation. Right lower extremity DVT -Patient reports she is currently still on starter pack for Xarelto taking 15 mg twice a day -DC Xarelto until OK by surgery -Continue to follow up outpatient with vascular surgery Dr. Zavaleta on 06/01/22 for scheduled stenting Nicotine dependence -Recommend smoking cessation -Nicotine patch CODE STATUS: Full code DVT prophylaxis: Xarelto Discussed with: Patient and RN Anticipated discharge date: 1-2 days Objective - Vital Signs Vital signs: Vital Signs Temp 97.7 F 05/13/22 15:00 Pulse 62 05/13/22 15:00 Resp 18 05/13/22 15:00 BP 139/82 05/13/22 15:00 Pulse Ox 98 05/13/22 15:00 FiO2 Intake & Output 05/12/22 05/13/22 05/13/22 18:59 06:59 18:59 Weight 99.79 kg Other: Voiding Method Toilet # Voids 1 3 - Labs CBC & Chem 7: 05/13/22 05:22 05/13/22 05:22 Labs: Abnormal Lab Results - Last 24 Hours (Table) 05/13/22 05/13/22 Range/Units 05:22 05:22 RBC 3.49 L (4.10-5.20) X 10*6/uL Hgb 11.0 L (12.0-15.0) g/dL Hct 33.7 L (37.2-46.3) % Anion Gap 8.60 L (10.00-18.00) mmol/L AST 88 H (13-35) U/L ALT 132 H (8-44) U/L Alkaline Phosphatase 146 H (41-126) U/L Albumin 3.6 L (3.8-4.9) g/dL Albumin/Globulin Ratio 1.23 L (1.60-3.17) g/dL
[2022-05-14] MEDS: FLUTICASONE 110 MCG INHALER INHALATION SCH ×2 (08:22→20:19)
[2022-05-14] MEDS: IPRATROPIUM 0.5 MG/2.5 ML NEBU INHALATION SCH ×4 (08:22→20:19)
[2022-05-14 08:37] LABS: Basophils % (A) 0 %; Eosinophils # (A) 0.1 k/uL (0-0.7); Eosinophils % (A) 2 %; HCT 37.2 % (34.0-46.0); HGB 12.4 gm/dL (11.4-16.0); Lymphocytes # (A) 1.8 k/uL (1.0-4.8); Lymphocytes % (A) 22 %; MCH 31.7 pg (25.0-35.0); MCHC 33.2 g/dL (31.0-37.0); MCV 95.3 fL (80.0-100.0); Mean Platelet Volume 8.3; Monocytes # (A) 0.3 k/uL (0-1.0); Monocytes % (A) 3 %; Neutrophils # (A) 5.7 k/uL (1.3-7.7); Neutrophils % (A) 72 %; Platelet Count 166 k/uL (150-450); RBC 3.91 m/uL (3.80-5.40); WBC 7.9 k/uL (3.8-10.6)
[2022-05-14 08:54] LABS: ALT 148 U/L (4-34); AST 98 U/L (14-36); African American GFR (CKD) >90 (>60 ml/min/1.73 sqM); Albumin 3.8 g/dL (3.5-5.0); Albumin/Globulin Ratio 1.1; Alkaline Phosphatase 170 U/L (38-126); Anion Gap 10 mmol/L; Blood Urea Nitrogen 10 mg/dL (7-17); Calcium 9.3 mg/dL (8.4-10.2); Carbon Dioxide 21 mmol/L (22-30); Chloride 107 mmol/L (98-107); Globulin 3.5 g/dL; Glucose 121 mg/dL (74-99); Non-African American GFR(CKD) >90 (>60 ml/min/1.73 sqM); Potassium 4.2 mmol/L (3.5-5.1); Sodium 138 mmol/L (137-145); Total Bilirubin 0.4 mg/dL (0.2-1.3); Total Protein 7.3 g/dL (6.3-8.2)
[2022-05-14] MEDS: ONDANSETRON 4 MG/2 ML VIAL IVP PRN ×2 (08:54→21:32)
[2022-05-14] MEDS: OXYBUTYNIN CHLORIDE 5 MG TAB PO SCH ×2 (08:54→21:33)
[2022-05-14] MEDS: MORPHINE SULFATE 4 MG/ML SYRINGE IV PRN ×2 (08:54→21:32)
[2022-05-14] MEDS: PANTOPRAZOLE 40 MG TABLET PO SCH (08:54)
[2022-05-14] MEDS: NICOTINE 21MG/24HR PATCH TRANSDERM SCH (11:37)
--- NOTE | 2022-05-14 13:22 | P.PN ---
Subjective Progress Note Date: 05/14/22 Principal diagnosis: Patient was seen and examined. No acute events overnight. Patient continues to reports epigastric pain. Pain is 6/10 in severity. No radiation. No nausea or vo miting. General: [non toxic], [no distress], [appears at stated age] Derm: [warm], [dry] Head: [atraumatic], [normocephalic], [symmetric] Eyes: [EOMI], [no lid lag], [anicteric sclera] Mouth: [no lip lesion], [mucus membranes moist] Cardiovascular: [S1S2 reg], [no murmur], Lungs: [Decreased breath bilateral], [no rhonchi, no rales] , [no accessory muscle use] Abdominal: [soft], [tenderness to palpation in the epigastric area without rebound], [no guarding], [no appreciable organomegaly] Ext: [no gross muscle atrophy], [no edema], [no contractures] Neuro: [no focal neuro deficits] Psych: [Alert], [oriented], [appropriate affect] Chest pain, rule out acute coronary event -Cardiology consult -Telemetry monitoring -ACS ruled out -Cardiac diet -Aspirin, atorvastatin, and metoprolol -Lipid profile shows total cholesterol 208, LDL 147 -Echocardiogram shows EF 55-60% with no wall motion abnormalities Transaminitis secondary to unclear etiology does not appear to be chronic Epigastric/right upper quadrant pain/discomfort -Gallbladder ultrasound completed and was negative showing no gallstones, no dilated ducts, in no focal liver defect. -Monitor LFTs -Acute hepatitis panel negative -Nuclear scan shows marketed gallbladder biliary dyskinesia -Gen. surgery consulted, plans for laparoscopic cholecystectomy today -Ultrasound negative for acute coronary however patient continues to have epigastric and right upper quadrant pain/discomfort, consult placed to general surgery for further evaluation. Right lower extremity DVT -Patient reports she is currently still on starter pack for Xarelto taking 15 mg twice a day -DC Xarelto until OK by surgery -Continue to follow up outpatient with vascular surgery Dr. Zavaleta on 06/01/22 for scheduled stenting Nicotine dependence -Recommend smoking cessation -Nicotine patch CODE STATUS: Full code DVT prophylaxis: Xarelto Discussed with: Patient and RN Anticipated discharge date: 1-2 days Objective - Vital Signs Vital signs: Vital Signs Temp 97.7 F 05/14/22 07:10 Pulse 67 05/14/22 07:10 Resp 18 05/14/22 08:54 BP 134/79 05/14/22 07:10 Pulse Ox 98 05/14/22 07:10 FiO2 Intake & Output 05/13/22 05/14/22 05/14/22 18:59 06:59 18:59 Intake Total 118 Balance 118 Intake: Oral 118 Other: Voiding Method Toilet Toilet # Voids 3 2 - Labs CBC & Chem 7: 05/14/22 08:20 05/14/22 08:20 Labs: Abnormal Lab Results - Last 24 Hours (Table) 05/14/22 Range/Units 08:20 Carbon Dioxide 21 L (22-30) mmol/L Glucose 121 H (74-99) mg/dL AST 98 H (14-36) U/L ALT 148 H (4-34) U/L Alkaline Phosphatase 170 H (38-126) U/L
[2022-05-14] MEDS ORDERED: IV FLUID CONTINUATION 900 ML IV ONE (14:47)
[2022-05-14] MEDS ORDERED: DEXAMETHASONE SOD PHOSPHATE 4 MG/ML 1 ML VIAL IVP ONE (15:01)
[2022-05-14] MEDS ORDERED: ONDANSETRON 4 MG/2 ML VIAL IVP ONE (15:01)
[2022-05-14] MEDS ORDERED: HEPARIN SODIUM,PORCINE/PF 5,000 UNIT/0.5 ML SYRINGE SQ ONE (15:20)
[2022-05-14] MEDS ORDERED: HEPARIN SODIUM,PORCINE 5,000 UNIT/ML 1 ML VIAL SQ ONE (15:21)
[2022-05-14] MEDS ORDERED: MIDAZOLAM 2 MG/2 ML VIAL ONE (15:53)
[2022-05-14] MEDS ORDERED: LIDOCAINE 2% INJ 20 MG/ML (2 ML VIAL) ONE (15:53)
[2022-05-14] MEDS ORDERED: SUCCINYLCHOLINE CHLORIDE 200 MG/10 ML VIAL IV ONE (15:53)
[2022-05-14] MEDS ORDERED: PROPOFOL 10 MG/ML 20 ML VIAL IV ONE (15:53)
[2022-05-14] MEDS ORDERED: KETOROLAC 15 MG/ML 1 ML VIAL ONE (15:53)
[2022-05-14] MEDS ORDERED: ROCURONIUM 10 MG/ML (5 ML VIAL) IV ONE (15:53)
[2022-05-14] MEDS ORDERED: GLYCOPYRROLATE 0.2 MG/ML 2 ML VIAL ONE (15:53)
[2022-05-14] MEDS ORDERED: fentaNYL (PF) 50 MCG/ML 2 ML AMP ONE (15:53)
[2022-05-14] MEDS ORDERED: HYDROmorphone (PF) 1 MG/ML ONE (15:53)
[2022-05-14] MEDS ORDERED: NEOSTIGMINE 1 MG/ML 10 ML VIAL ONE (15:53)
[2022-05-14] MEDS ORDERED: BUPIVACAIN-EPI 0.25%-1:200,000 30 ML VIAL SQ ONE (16:09)
[2022-05-14] MEDS: LACTATED RINGERS 1,000 ML IV SCH ×2 (16:10→17:32)
[2022-05-14] MEDS ORDERED: HYDROmorphone 1 MG/ML 1 ML SYRINGE IVP PRN (16:26)
--- NOTE | 2022-05-14 16:26 | P.OP ---
Date of Procedure: 05/14/22 Preoperative Diagnosis: Cholecystitis Postoperative Diagnosis: Cholecystitis Cholelithiasis Procedure(s) Performed: Laparoscopic cholecystectomy Anesthesia: GEOVANNA Surgeon: Miguel Hinojosa Estimated Blood Loss (ml): 5 Pathology: other (Gallbladder) Condition: stable Disposition: PACU Description of Procedure: The patient was placed on the operating table. The patient received a general endotracheal tube anesthesia. The patients abdomen was prepped and draped in the usual sterile fashion. Through an infraumbilical stab incision, the fascia of the anterior abdominal wall was grasped with a pair of Kochers and then the Veress needle was placed in the peritoneal cavity. Position of the Veress needle was confirmed with positive drop test. The abdomen was then insufflated. After adequate insufflation, the 10 mm trocar was placed in the peritoneal cavity. Following this the laparoscope was placed in the peritoneal cavity. The patient was placed in the head-up, right side up position and then a 5 mm trocar was placed in the right lateral and right subcostal position under direct visualization. A 8 mm trocar was placed in the epigastric position. The gallbladder was grasped in the fundus and infundibulum. Traction on the gallbladder was placed in the lateral and the cephalad positions. The triangle of Calot was visualized.. The cystic duct was bluntly dissected until the union of the cystic duct and common bile duct was seen. A critical view of safety was achieved. The cystic duct was then divided and sealed with the Harmonic scissors. A PDS Endoloop was then placed throughout the cystic duct stump. The cystic artery divided and sealed with the Harmonic scissors. The gallbladder was then removed from the liver bed using Harmonic scissors. The gallbladder was then extracted through the epigastric port site. Operative field was checked for any bleeding spots and Harmonic scissors was used to coagulate the liver bed. The abdomen was irrigated. The trocars were removed. The skin was closed using interrupted 3-0 Vicryl suture. Dermabond dressing were applied. The patient tolerated the procedure well.
[2022-05-14] MEDS ORDERED: diphenhydrAMINE 50 MG/ML 1 ML VIAL IVP ONE (16:48)
[2022-05-14] MEDS ORDERED: HYDROmorphone 0.5 MG/0.5 ML SYRINGE IVP ONE ×2 (16:52→17:09)
[2022-05-14] MEDS: ACETAMINOPHEN TAB 325 MG TAB PO PRN (18:19)
--- NOTE | 2022-05-14 23:01 | PN ---
PROGRESS NOTE Natlaie is a 52-year-old lady with history of peripheral vascular disease, GERD, and chronic nicotine abuse, comes to the hospital with epigastric pain and chest pain. Her predominant problem was epigastric discomfort and she is to undergo cholecystectomy. This morning she is doing well and is free of symptoms. PHYSICAL EXAMINATION: GENERAL: Comfortable at rest. VITAL SIGNS: Stable. CHEST: Reveals good air entry bilaterally. HEART: Reveals first and second heart sounds. No gallop. EXTREMITIES: Examination of extremities did not reveal any edema. Peripheral pulses are felt. ASSESSMENT: 1. Atypical chest pain. 2. Abdominal pain secondary to cholecystitis secondary to gallstones. PLAN: No further cardiac intervention. We will see the patient on a p.r.n. basis. MIKI / ARIEN: [id number] /
[2022-05-15] MEDS: MORPHINE SULFATE 4 MG/ML SYRINGE IV PRN (06:16)
[2022-05-15 06:45] VITALS: RESP 18
[2022-05-15] MEDS: FLUTICASONE 110 MCG INHALER INHALATION SCH (07:48)
[2022-05-15] MEDS: IPRATROPIUM 0.5 MG/2.5 ML NEBU INHALATION SCH ×2 (07:49→10:49)
[2022-05-15 08:09] VITALS: BP 158/66; PULSE 85; TEMP 97.9
[2022-05-15] MEDS ORDERED: ENOXAPARIN 40 MG/0.4 ML SYRINGE SQ SCH (09:00)
--- NOTE | 2022-05-15 09:23 | P.DS ---
Providers Date of admission: 05/12/22 03:27 Expected date of discharge: 05/15/22 Attending physician: Anjum Peralta MD Consults: 05/12/22 15:35 Consult Physician Routine Consulting Provider: Miguel Hinojosa Consult Reason/Comments: Epigastric pain/tenderness, elevated liver enzymes US NEG for acute allan Do you want consulting provider notified?: Yes Primary care physician: Stated None Hospital Course: Patient is a very pleasant 52-year-old female with a past medical history of COPD and DVT on Xarelto. She presented to the emergency department with a chief complaint of chest pain. Patient reports experiencing sharp pain that radiates into her back worse upon taking a deep breath and with palpation. Patient denies having any headache, lightheadedness, dizziness, palpitations, shortness of breath at rest, abdominal pain, nausea, vomiting, or any other complaints. In the emergency department, patient underwent full evaluation. She was found to have transaminitis with AST of 206, ALT of 119, alkaline phosphatase 161 and total bili of 1.7. Troponin negative at less than 0.012. ProBNP 163, and d- dimer 0.49. Chest x-ray negative for acute cardiopulmonary process. EKG showing normal sinus rhythm with a left bundle branch block at 77 bpm, unchanged from previous EKG completed 05/21/2015. CT angiogram of chest abdomen and pelvis revealing no evidence of arterial aneurysm or dissection and no evidence of pulmonary emboli, liver reported to appear normal with reports that the bile ducts were not dilated. Gallbladder ultrasound completed and was negative showing no gallstones, no dilated ducts, in no focal liver defect. Patient was admitted under our services with consultation to cardiology. Troponins were trended and ACS was ruled out. Echocardiogram was done which showed EF of 55-60% with no wall motion abnormalities. With regard to her transaminitis, patient underwent hepatobiliary scan with nuclear medicine. This showed marketed gallbladder biliary dyskinesia. General surgery was consulted and recommended laparoscopic cholecystectomy. Patient underwent surgery on 05/14/2022. Patient was seen and examined on 05/15/2022. She reported pain at the site of incision, 7 out of 10 in severity. She did report wanting to go home. She is advised to follow-up with her PCP within 1-2 days of discharge. Follow-up with surgery within 1 week of discharge. She'll be prescribed a three-day course of Percocet as needed. Her Protonix will be refilled. He is advised to restart Xarelto. She is advised to limit diet free of caffeine, acidic, spicy and fatty foods. Patient verbalized understanding of the plan. General: [non toxic], [no distress], [appears at stated age] Derm: [warm], [dry] Head: [atraumatic], [normocephalic], [symmetric] Eyes: [EOMI], [no lid lag], [anicteric sclera] Mouth: [no lip lesion], [mucus membranes moist] Cardiovascular: [S1S2 reg], [no murmur], Lungs: [Decreased breath bilateral], [no rhonchi, no rales] , [no accessory muscle use] Abdominal: [soft], [laparoscopic scars without bleeding or discharge], [no guarding], [no appreciable organomegaly] Ext: [no gross muscle atrophy], [no edema], [no contractures] Neuro: [no focal neuro deficits] Psych: [Alert], [oriented], [appropriate affect] Discharge diagnosis: Chest pain Transaminitis secondary to biliary dyskinesia Epigastric/right upper quadrant pain/discomfort Right lower extremity DVT Nicotine dependence Pertinent Studies: Chest x-ray Thoracic aorta CT Gallbladder ultrasound Echocardiogram Hepatobiliary scan nuclear medicine Procedures: Laparoscopic cholecystectomy Patient Condition at Discharge: Stable Plan - Discharge Summary Discharge Rx Participant: No New Discharge Prescriptions: New Docusate [Colace] 100 mg PO BID #20 capsule oxyCODONE HCL [OxyIR] 5 mg PO Q6H PRN 3 Days #10 tab PRN Reason: Pain Ibuprofen [Motrin] 600 mg PO Q6HR PRN #40 tab PRN Reason: Pain Acetaminophen Tab [Tylenol] 650 mg PO Q6H #30 tab oxyCODONE HCL/ACETAMINOPHEN [Percocet 10-325 mg] 1 tab PO Q4HR PRN 3 Days #18 tab PRN Reason: Pain Continue Albuterol Inhaler [Ventolin Hfa Inhaler] 2 puff INHALATION RT-Q6H PRN PRN Reason: Shortness Of Breath Rivaroxaban [Xarelto Starter Pack] See Taper PO DIRECTED Tiotropium 18 Mcg/Puff [Spiriva] 1 puff INHALATION RT-DAILY Nicotine 21Mg/24Hr Patch [Habitrol] 1 patch TRANSDERM DAILY Oxybutynin Chloride [Ditropan] 5 mg PO BID Beclomethasone Dip 80 Mcg/Puff [Qvar 80 mcg] 1 puff INHALATION RT-BID Pantoprazole [Protonix] 40 mg PO DAILY #30 tab Discharge Medication List Albuterol Inhaler [Ventolin Hfa Inhaler] 2 puff INHALATION RT-Q6H PRN 05/12/22 [History] Beclomethasone Dip 80 Mcg/Puff [Qvar 80 mcg] 1 puff INHALATION RT-BID 05/12/22 [History] Nicotine 21Mg/24Hr Patch [Habitrol] 1 patch TRANSDERM DAILY 05/12/22 [History] Oxybutynin Chloride [Ditropan] 5 mg PO BID 05/12/22 [History] Rivaroxaban [Xarelto Starter Pack] See Taper PO DIRECTED 05/12/22 [History] Tiotropium 18 Mcg/Puff [Spiriva] 1 puff INHALATION RT-DAILY 05/12/22 [History] Acetaminophen Tab [Tylenol] 650 mg PO Q6H #30 tab 05/14/22 [Rx] Docusate [Colace] 100 mg PO BID #20 capsule 05/14/22 [Rx] Ibuprofen [Motrin] 600 mg PO Q6HR PRN #40 tab 05/14/22 [Rx] oxyCODONE HCL [OxyIR] 5 mg PO Q6H PRN 3 Days #10 tab 05/14/22 [Rx] Pantoprazole [Protonix] 40 mg PO DAILY #30 tab 05/15/22 [Rx] oxyCODONE HCL/ACETAMINOPHEN [Percocet 10-325 mg] 1 tab PO Q4HR PRN 3 Days #18 tab 05/15/22 [Rx] Follow up Appointment(s)/Referral(s): None,Stated [Primary Care Provider] - 1-2 days Miguel Hinojosa MD [STAFF PHYSICIAN] - 1 Week Activity/Diet/Wound Care/Special Instructions: Diet: Regular diet Please avoid caffeinated beverages, nicotine, spicy and fatty foods. Take all medications as advised. Follow-up with Dr. Hinojosa in 1 week of discharge. Follow-up with your PCP within 1-2 days of discharge. Come back to the ED or call 911 for worsening chest pain, shortness of breath, palpitations or lightheadedness. Discharge Disposition: HOME SELF-CARE
[2022-05-15] MEDS: PANTOPRAZOLE 40 MG TABLET PO SCH (10:06)
[2022-05-15] MEDS: OXYBUTYNIN CHLORIDE 5 MG TAB PO SCH (10:06)
[2022-05-15] MEDS: NICOTINE 21MG/24HR PATCH TRANSDERM SCH (10:07)
== END 2022-05-15 11:11 | disposition home or self-care (01) ==
LOC: EC 23:39 → 6NMEDSUR 05-12 03:27
PROVIDERS: ADMIT Internal Medicine; ATTEND Internal Medicine
DX: K81.2 Acute cholecystitis with chronic cholecystitis (principal); R07.89 Other chest pain; R74.8 Abnormal levels of other serum enzymes; I16.0 Hypertensive urgency; I70.0 Atherosclerosis of aorta; R74.01 Elevation of levels of liver transaminase levels; R79.89 Other specified abnormal findings of blood chemistry; I44.7 Left bundle-branch block, unspecified; I35.0 Nonrheumatic aortic (valve) stenosis; I73.9 Peripheral vascular disease, unspecified; J44.9 Chronic obstructive pulmonary disease, unspecified; K21.9 Gastro-esophageal reflux disease without esophagitis; F17.200 Nicotine dependence, unspecified, uncomplicated; M32.9 Systemic lupus erythematosus, unspecified; M06.9 Rheumatoid arthritis, unspecified; I08.1 Rheumatic disorders of both mitral and tricuspid valves; Z79.01 Long term (current) use of anticoagulants; Z79.899 Other long term (current) drug therapy; Z88.6 Allergy status to analgesic agent; Z88.0 Allergy status to penicillin; Z90.710 Acquired absence of both cervix and uterus; Z86.718 Personal history of other venous thrombosis and embolism; Z63.72 Alcoholism and drug addiction in family; Z81.1 Family history of alcohol abuse and dependence
CPT/HCPCS: 96376 ×3; 96372 ×2; 96375 ×3; 96374; 99285; 36415; 94640; 94760; 93005; 93306; 85379; 88304; 83880; 80061; 80053 ×3; 80074; 83735 ×2; 84484; 85025 ×3; 85027; 85610; 85730; 71045; 76705; 71275; 74174; 78227; 47562; G0378 ×4; A9537; S4990 ×4; J2250; J0330; J2270 ×3; J1200; J1644 ×2; J1100 ×2; J0690; J2405 ×2; J2805; J3010; J1170 ×3; J1885; J2704; Q9967; J2001

== ENCOUNTER 2022-06-01 06:10 | Day surgery (SDC) | payer OTHER ==
[2022-05-29 12:08] VITALS: BMI 36.6
[~2022-06-01 06:10] MED LIST: SODIUM CHLORIDE 0.9% 1,000 ML in EMPTY BAG 1 BAG IV ONE
[2022-06-01] MEDS ORDERED: SODIUM CHLORIDE 0.9% 1,000 ML IV ONE (06:26)
[2022-06-01 06:52] VITALS: RESP 16; TEMP 97.1
[2022-06-01] MEDS ORDERED: HEPARIN SODIUM 1,000 UN/ML (10ML VL) ONE (07:35)
[2022-06-01] MEDS ORDERED: LIDOCAINE 1% INJ 10MG/ML (30 ML VIAL-PF) SQ ONE (07:40)
[2022-06-01] MEDS ORDERED: MIDAZOLAM 2 MG/2 ML VIAL IV ONE (07:40)
[2022-06-01] MEDS ORDERED: HEPARIN SODIUM 1,000 UN/ML (10ML VL) IV ONE (07:49)
[2022-06-01] MEDS ORDERED: HYDROmorphone 1 MG/ML 1 ML SYRINGE IVP ONE (08:13)
[2022-06-01] MEDS ORDERED: IOPAMIDOL-250 100ML BTL INTRAARTER ONE ×3 (08:40)
[2022-06-01] MEDS ORDERED: CLOPIDOGREL 75 MG TAB PO STA (09:11)
[2022-06-01] MEDS ORDERED: HYDROmorphone 0.5 MG/0.5 ML SYRINGE IVP PRN (09:13)
--- NOTE | 2022-06-01 09:44 | IR ---
EXAMINATION TYPE: IR stent intravas non coronary DATE OF EXAM: 06/01/2022 COMPARISON: NONE HISTORY: Fluoroscopy time. Fluoroscopy was provided to the referring clinician.
--- NOTE | 2022-06-01 09:49 | P.OP ---
Date of Procedure: 06/01/22 Preoperative Diagnosis: Right Common iliac artery stenosis <90% Right toe wound, claudication Postoperative Diagnosis: Same Procedure(s) Performed: Ultrasound guided right common femoral artery access Aortogram with selective right retrograde iliac angiogram Right common iliac artery percutaneous transluminal angioplasty Intravascular ultrasound of the Aorta, right common iliac and external iliac artery Percutaneous transluminal balloon expandable common iliac artery stent placement Percutaneous closure of the right common femoral artery with Vascade device Conscious sedation x 64 mins Anesthesia: local Surgeon: Bob Zavaleta Estimated Blood Loss (ml): 5 Pathology: none sent Condition: stable Disposition: PACU Indications for Procedure: 52 year old female with history of right toe wound, with previous hospitalization at [facility] where she underwent workup with aortogram and runoff with Dr. Watson. Upon evaluation there was severe right common iliac artery stenosis and calcification in need of intervention. Patient has been experiencing pain with ambulation as well and presents today for iliac stenting possible bilateral kissing stents. Description of Procedure: After written and informed consent was obtained and all risks, benefits and complications were described the patient was brought to the bottle labeler and laid in a supine position. The area of the groins were prepped and draped in the usual fashion. Timeout was performed in usual fashion. The right common femoral artery was visualized under ultrasound demonstrating patent vessel with minimal calcification. The artery was then accessed under ultrasound guidance and a 5F sheath was placed. 5000 units of heparin was given and followed with ACTs. A retrograde angiogram was then obtained demonstrating right iliac artery stenosis. An 035 glidewire was then placed across the lesion and pigtail catheter was placed and aortogram was obtained. Multiple angles were then obtained demonstrating the lesion. A 4x20mm followed by a 5x40mm balloon were then used and balloon angioplasty was performed with some improvement. An IVUS catheter was then placed and common iliac artery was visualized as well as the aorta and external iliac artery. Measurements of the stenosis were obtained which demonstrated a focal area greater than 90%. The artery measured 7.2mm distal to the lesion and therefore an 8x27mm balloon expandable uncovered stent was chosen and deployed in usual fashion after upsizing to a 6F sheath. Once completed a final angiogram was obtained demonstrating complete resolution of the stenosis with good brisk flow bilaterally. All guidewires and catheters were then removed and a Vascade closure device was placed for hemostasis. The patient tolerated the procedure well, had palpable dp pulse on the right and pt pulse on the left. Plan - Discharge Summary Discharge Rx Participant: No New Discharge Prescriptions: No Action Albuterol Inhaler [Ventolin Hfa Inhaler] 2 puff INHALATION RT-Q6H PRN PRN Reason: Shortness Of Breath oxyCODONE HCL [OxyIR] 5 mg PO Q6H PRN 3 Days #10 tab PRN Reason: Pain Rivaroxaban [Xarelto] 20 mg PO DAILY Clopidogrel [Plavix] 75 mg PO DAILY Tiotropium 18 Mcg/Puff [Spiriva] 1 puff INHALATION RT-DAILY Nicotine 21Mg/24Hr Patch [Habitrol] 1 patch TRANSDERM DAILY Oxybutynin Chloride [Ditropan] 5 mg PO BID Beclomethasone Dip 80 Mcg/Puff [Qvar 80 mcg] 1 puff INHALATION RT-BID Ibuprofen [Motrin] 600 mg PO Q6HR PRN #40 tab PRN Reason: Pain Pantoprazole [Protonix] 40 mg PO DAILY #30 tab Acetaminophen Tab [Tylenol] 650 mg PO Q6H PRN PRN Reason: Pain Discharge Medication List Albuterol Inhaler [Ventolin Hfa Inhaler] 2 puff INHALATION RT-Q6H PRN 05/12/22 [History] Beclomethasone Dip 80 Mcg/Puff [Qvar 80 mcg] 1 puff INHALATION RT-BID 05/12/22 [History] Nicotine 21Mg/24Hr Patch [Habitrol] 1 patch TRANSDERM DAILY 05/12/22 [History] Oxybutynin Chloride [Ditropan] 5 mg PO BID 05/12/22 [History] Tiotropium 18 Mcg/Puff [Spiriva] 1 puff INHALATION RT-DAILY 05/12/22 [History] Ibuprofen [Motrin] 600 mg PO Q6HR PRN #40 tab 05/14/22 [Rx] oxyCODONE HCL [OxyIR] 5 mg PO Q6H PRN 3 Days #10 tab 05/14/22 [Rx] Pantoprazole [Protonix] 40 mg PO DAILY #30 tab 05/15/22 [Rx] Acetaminophen Tab [Tylenol] 650 mg PO Q6H PRN 05/29/22 [History] Rivaroxaban [Xarelto] 20 mg PO DAILY 05/29/22 [History] Clopidogrel [Plavix] 75 mg PO DAILY 06/01/22 [History] Follow up Appointment(s)/Referral(s): Bob Zavaleta DO [STAFF PHYSICIAN] - 2 Weeks Activity/Diet/Wound Care/Special Instructions: no lifting greater than 15 lbs x 1week. Discharge Disposition: HOME SELF-CARE
[2022-06-01 12:56] VITALS: BP 112/70; PULSE 87
== END 2022-06-01 13:58 | disposition home or self-care (01) ==
LOC: CATHCVL 06:10
PROVIDERS: ATTEND Surgery
DX: I70.211 Atherosclerosis of native arteries of extremities with intermittent claudication, right leg (principal)
CPT/HCPCS: 37221; 37252; C1769 ×5; C1894; C1725; C1753; C1876; C1760; J2250; J2001; J1644; J1170 ×2; Q9966

== ENCOUNTER 2022-09-24 09:02 | Day surgery (SDC) | payer OTHER ==
[~2022-09-24 09:02] MED LIST changes: +LACTATED RINGERS 1,000 ML IV SCH; -SODIUM CHLORIDE 0.9% 1,000 ML in EMPTY BAG 1 BAG IV ONE
[2022-09-24] MEDS ORDERED: ONDANSETRON 4 MG/2 ML VIAL ONE (10:34)
[2022-09-24] MEDS ORDERED: ONDANSETRON 4 MG/2 ML VIAL IVP ONE (10:37)
[2022-09-24 10:39] VITALS: TEMP 97.2
[2022-09-24] MEDS ORDERED: LIDOCAINE 2% INJ 20 MG/ML (2 ML VIAL) ONE (10:54)
[2022-09-24] MEDS ORDERED: PROPOFOL 10 MG/ML 20 ML VIAL IV ONE (10:54)
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
--- NOTE | 2022-09-24 11:17 | P.OP ---
Date of Procedure: 09/24/22 Preoperative Diagnosis: GERD Screening colonoscopy Postoperative Diagnosis: Antral gastritis Mild diverticulosis Procedure(s) Performed: Colonoscopy Anesthesia: MAC Surgeon: Miguel Hinojosa Pathology: other (Antrum) Condition: stable Disposition: PACU Description of Procedure: The patient's placed on the endoscopy table in the lateral position. She received IV sedation. The gastro-/oropharynx passed in the esophagus into the stomach. The scope was then placed through the pylorus. The first and second portion of the duodenum appeared normal. Scope was then brought back the antrum this appeared mildly inflamed. A biopsies performed. The scope was then retroflexed and the remainder of the stomach appeared normal. There was no significant hiatal hernia. The GE junction was at 40 cm. The distal esophagus was minimal inflamed and a biopsies performed. The proximal esophagus appeared normal. Scope withdrawn for patient. Next digital rectal exam was performed. This revealed a few external hemorrhage. The flexible colonoscope was then placed patient anus and passed throughout the entire colon. The ileocecal valve was visualized. The cecum, ascending and transverse colon appeared normal. The descending and; had a few scattered diverticula. The scope was then brought back the rectum this appeared normal. Scope withdrawn for patient.
[2022-09-24 11:47] VITALS: BP 100/62; PULSE 80; RESP 16
== END 2022-09-24 11:55 | disposition home or self-care (01) ==
LOC: ORWHC2ENDO 09:02
PROVIDERS: ATTEND Surgery
DX: Z12.11 Encounter for screening for malignant neoplasm of colon (principal); K57.30 Diverticulosis of large intestine without perforation or abscess without bleeding; K29.50 Unspecified chronic gastritis without bleeding; K21.00 Gastro-esophageal reflux disease with esophagitis, without bleeding; F17.200 Nicotine dependence, unspecified, uncomplicated; J44.9 Chronic obstructive pulmonary disease, unspecified; M06.9 Rheumatoid arthritis, unspecified; M32.9 Systemic lupus erythematosus, unspecified; Z79.02 Long term (current) use of antithrombotics/antiplatelets; Z79.51 Long term (current) use of inhaled steroids; Z88.0 Allergy status to penicillin; Z90.49 Acquired absence of other specified parts of digestive tract
CPT/HCPCS: 88305; 88342; 45378; 43239; J2405; J2704; J2001

== ENCOUNTER → 2022-10-20 | Outpatient (CLI) | payer OTHER ==
[2022-10-20 22:31] LABS: HCT 39.4 % (37.2-46.3); HGB 12.5 g/dL (12.0-15.0); MCH 30.9 pg (27.0-32.0); MCHC 31.7 g/dL (32.0-37.0); MCV 97.3 fL (80.0-97.0); Mean Platelet Volume 11.2 fL (9.5-12.2); NRBC Per 100 WBC 0 /100 WBCS (0.0-0.0); Platelet Count 294 X 10*3/uL (140-440); RBC 4.05 X 10*6/uL (4.10-5.20); RDW 13.8 % (11.5-14.5); WBC 6.74 X 10*3/uL (4.50-10.00)
== END | disposition home or self-care (01) ==
LOC: LABPAT 11:45
PROVIDERS: ATTEND Surgery
DX: Z01.812 Encounter for preprocedural laboratory examination (principal)
CPT/HCPCS: 85027

== ENCOUNTER → 2022-11-04 | Outpatient (CLI) | payer OTHER ==
--- NOTE | 2022-11-04 12:07 | CT ---
EXAMINATION TYPE: CT angio abd aorta w/Runoff DATE OF EXAM: 11/04/2022 COMPARISON: 05/22/2022 HISTORY: iliac occlusion CT DLP: 3695.1 mGycm Automated exposure control for dose reduction was used. CONTRAST: Performed with IV Contrast, patient injected with 125 mL of Isovue 370. FINDINGS: There is a 5 mm subpleural nodule left lower seen with certainty on prior CTs. There is somewhat prominent in size and there is evidence of diffuse low attenuation just above the t alus is correlated with previous cholecystectomy Cortical loss involving the right kidney compatible with chronic medical renal disease. No obvious hy dronephrosis or nephrolithiasis. Punctate hypodensities within the left kidney too small to character ize but likely benign. The bowel gas pattern nonspecific. Pancreas normal. Adrenal glands demonstrate normal morphology. Spl een is normal. The tiny accessory spleen. AORTA: The aorta of normal caliber with no evidence aneurysm. Atherosclerotic mild changes seen proximally. At the level of the distal abdominal aorta there appears to be severe stenosis which may be related t o the protruding unilateral iliac stent. SMA and celiac axis patent. Renal arteries appear to be patent bilaterally. No significant stenosis. Diminutive JAMIL appears PELVIC VASCULATURE: Suspect a short segmental occlusion of the right common iliac stent. Also suspicion for a critical st enosis or short segmental occlusion near the origin of the left common iliac artery. Additional mild atherosclerotic changes of the common iliac arteries bilaterally with approximately 5 0% stenosis of the right internal/external iliac arteries. Mild atherosclerotic change in the left in ternal and external iliac arteries. LOWER EXTREMITY ARTERIAL SYSTEM: Common femoral arteries are diminutive bilaterally but demonstrate no significant stenosis. The deep femoral artery appears to be patent. Superficial femoral arteries are patent bilaterally but diminutive size. No significant atherosclerot ic changes. Popliteal arteries are also diminutive bilaterally. Tibial peroneal trunk. Standard three-vessel anatomy seen with a diminutive trifurcation vasculature bilaterally. Peroneal a rtery is seen through the level of distal calf. No significant atherosclerotic plaque. Anterior and posterior tibial arteries are seen in the blood supply in the dorsalis pedis and posteri or calcaneal branches respectively. No significant stenosis. IMPRESSION: 1. Findings are suggestive of a unilateral right common iliac artery stent either short segmental occ lusion or critical stenosis. The proximal portion of the right iliac stent appears to overlap of the origin of the left common iliac artery with either critical stenosis or short segmental occlusion not ed correlate clinically. 2. Hepatic steatosis. 3. 5 mm subpleural pulmonary nodule left lower lobe not seen by prior CT scan. Recommend 6 month foll ow-up CT chest for stability
== END | disposition home or self-care (01) ==
LOC: RADCTMAIN 10:16
PROVIDERS: ATTEND Surgery
DX: K76.0 Fatty (change of) liver, not elsewhere classified (principal); I74.5 Embolism and thrombosis of iliac artery; Z95.820 Peripheral vascular angioplasty status with implants and grafts
CPT/HCPCS: 75635; Q9967

== ENCOUNTER 2023-02-04 21:05 | Emergency (ER) | payer OTHER ==
[2023-02-04 21:09] VITALS: TEMP 97.9
[2023-02-04] MEDS ORDERED: HYDROmorphone 1 MG/ML 1 ML SYRINGE IVP STA (21:26)
--- NOTE | 2023-02-04 21:31 | ED ---
General Adult HPI - General Chief complaint: Chest Pain Stated complaint: CHEST PAIN Time Seen by Provider: 02/04/23 21:20 Source: patient, family Mode of arrival: ambulatory Limitations: no limitations - History of Present Illness Initial comments: Dictation was produced using [employer] dictation software. please excuse any grammatical, word or spelling errors. Chief Complaint: 53-year-old male presents with left-sided chest pain History of Present Illness: 53-year-old female presents to worsening left-sided chest pain. One week ago she slipped in the bathtub twice. She landed with her left arm abducted striking her left lateral chest on the side of the bathtub. She tried to stand up slipped again and hit that area. States that her pain slowly progressed since then. So sharp pain that is mostly in her left anterior chest but radiates to her back. Pain is significantly worse with deep inspiration palpation to the area. Patient states the pain is so severe that she is unable to rest. The ROS documented in this emergency department record has been reviewed and confirmed by me. Those systems with pertinent positive or negative responses have been documented in the HPI. All other systems are other negative and/or noncontributory. - Related Data Home Medications Medication Instructions Recorded Confirmed Oxybutynin Chloride [Ditropan] 5 mg PO BID 05/12/22 02/04/23 Clopidogrel [Plavix] 75 mg PO DAILY 06/01/22 02/04/23 Omeprazole [PriLOSEC] 40 mg PO DAILY 09/22/22 02/04/23 Sucralfate [Carafate] 1 gm PO BID 09/22/22 02/04/23 Atorvastatin [Lipitor] 40 mg PO DAILY 02/04/23 02/04/23 Previous Rx's Medication Instructions Recorded HYDROcodone/APAP 5-325MG [[place] 1 tab PO Q6HR PRN 3 Days #12 tab 02/04/23 5-325] Allergies Allergy/AdvReac Type Severity Reaction Status Date / Time adhesive tape Allergy takes skin Verified 02/04/23 21:58 off aspirin Allergy Unknown Verified 02/04/23 21:58 Penicillins Allergy Rash/Hives Verified 02/04/23 21:58 steriods Allergy Swelling Uncoded 02/04/23 21:58 Review of Systems ROS Statement: Those systems with pertinent positive or pertinent negative responses have been documented in the HPI. ROS Other: All systems not noted in ROS Statement are negative. Past Medical History Past Medical History: Asthma, Chest Pain / Angina, COPD, GERD/Reflux, Rheumatoid Arthritis (RA), Vascular Disorder Additional Past Medical History / Comment(s): RA in multiple joints but worse in bilateral knees/hips, left bundle branch block, lupus, migraines, bladder leakage, some numbness and tingling in feet, poor vision. History of Any Multi-Drug Resistant Organisms: None Reported Past Surgical History: Cholecystectomy, Hysterectomy Additional Past Surgical History / Comment(s): Recent angiogram at [facility], laser eye surgery bilaterally X2, stent to right leg, colonoscopy, EGD. Past Anesthesia/Blood Transfusion Reactions: Postoperative Nausea & Vomiting (PONV) Additional Past Anesthesia/Blood Transfusion Reaction / Comment(s): Hx blood tranfusions - no issues. Past Psychological History: No Psychological Hx Reported Smoking Status: Current every day smoker, Light tobacco smoker Past Alcohol Use History: Rare Past Drug Use History: Marijuana - Past Family History Father Family Medical History: Liver Disease Additional Family Medical History / Comment(s): Father was an alcoholic and had liver cirrhosis. He is . Mother History Unknown: Yes Additional Family Medical History / Comment(s): Pt spent most of childhood in foster care. Family Family Medical History: No Reported History Additional Family Medical History / Comment(s): No hx of premature CAD. General Exam - General Exam Comments Initial Comments: PHYSICAL EXAM: General Impression: Alert and oriented x3, acute distress secondary to pain HEENT: Normocephalic atraumatic, extra-ocular movements intact, pupils equal and reactive to light bilaterally, mucous membranes moist. Cardiovascular: Heart regular rate and rhythm Chest: Able to complete full sentences, no retractions, no tachypnea, severe palpatory tenderness along the entire left thorax Abdomen: abdomen soft, non-tender, non-distended, no organomegaly Musculoskeletal: Pulses present and equal in all extremities, no peripheral edema Motor: no focal deficits noted Neurological: CN II-XII grossly intact, no focal motor or sensory deficits noted Skin: Intact with no visualized rashes Psych: Normal affect and mood Limitations: no limitations Course Vital Signs 02/04/23 21:07 Temperature 97.9 F Pulse Rate 114 H Respiratory 22 Rate Blood Pressure 204/91 O2 Sat by Pulse 97 Oximetry EKG Findings - EKG Comments: EKG Findings:: My EKG interpretation: Ventricular rate 114, sinus tachycardia, WA interval 10 40, QRS 126, QTC 420. No WA prolongation, no QTC prolongation, no ST or T-wave changes noted. EKG compared to 05/11/2022 showing no changes. Overall, this EKG is unremarkable Medical Decision Making - Medical Decision Making Was pt. sent in by a medical professional or institution (, PA, BEESWAX BLEACHER, urgent care, hospital, or longterm...) When possible be specific @ -No Did you speak to anyone other than the patient for history (EMS, parent, family, police, friend...)? What history was obtained from this source @ -No Did you review nursing and triage notes (agree or disagree)? Why? @ -I reviewed and agree with nursing and triage notes Were old charts reviewed (outside hosp., previous admission, EMS record, old EKG, old radiological studies, urgent care reports/EKG's, longterm records)? Report findings @ -No old charts were reviewed Differential Diagnosis (chest pain, altered mental status, abdominal pain women, abdominal pain men, vaginal bleeding, musculoskeletal, weakness, fever, dyspnea, syncope, headache, dizziness, GI bleed, back pain, seizure, CVA, palpatations, mental health)? @ -Differential Chest Pain: Stable Angina, Unstable Angina, STEMI, NSTEMI Aortic Dissection, Pneumothorax, Musculoskeletal, Esophageal Spasm GERD, Cholecystitis, Pancreatitis, Zoster, this is not meant to be an all-inclusive list. EKG interpreted by me (3pts min.). @ -See above X-rays interpreted by me (1pt min.). @ -None done CT interpreted by me (1pt min.). @ -Hairline fractures, nondisplaced to the anterior left ribs 5 and 6 U/S interpreted by me (1pt. min.). @ -None done What testing was considered but not performed or refused? (CT, X-rays, U/S, lab s)? Why? @ -None What meds were considered but not given or refused? Why? @ -None Did you discuss the management of the patient with other professionals (professionals i.e. , PA, BEESWAX BLEACHER, lab, RT, psych nurse, long term care social worker, sugar sampler, teacher, customs and border protection officer, caseworker)? Give summary @ -No Was smoking cessation discussed for >3mins.? @ -No Was critical care preformed (if so, how long)? @ -No Were there social determinants of health that impacted care today? How? (Homelessness, low income, unemployed, alcoholism, drug addiction, transportation, low edu. Level, literacy, decrease access to med. care, longterm, rehab)? @ -No Was there de-escalation of care discussed even if they declined (Discuss DNR or withdrawal of care, Hospice)? DNR status @ -No What co-morbidities impacted this encounter? (DM, HTN, Smoking, COPD, CAD, Cancer, CVA, ARF, Chemo, Hep., AIDS, mental health diagnosis, sleep apnea, morbid obesity)? @ -COPD Was patient admitted / discharged? Hospital course, mention meds given and route, prescriptions, significant lab abnormalities, going to OR and other pertinent info. @ -53-year-old female presents emergency department with chest pain after slip and fall. CT shows fractures. No pulmonary contusion hemothorax or pneumothorax. Patient observed in emergency department for 1 hour 50 minutes. Reevaluated at bedside at 1056. Finally stable medical condition. Patient given incentive spirometer. She is given Lidoderm patch and analgesia. Patient discharged. She is given referrals to primary care doctors. Undiagnosed new problem with uncertain prognosis? @ -No Drug Therapy requiring intensive monitoring for toxicity (Heparin, Nitro, Insulin, Cardizem)? @ -No Were any procedures done? @ -No Diagnosis/symptom? Acute, or Chronic, or Acute on Chronic? Uncomplicated (without systemic symptoms) or Complicated (systemic symptoms)? @ -1. Rib fractures Side effects of treatment? @ -No Exacerbation, Progression, or Severe Exacerbation? @ -No Poses a threat to life or bodily function? How? (Chest pain, USA, [place], pneumonia, PE, COPD, DKA, ARF, appy, cholecystitis, CVA, Diverticulitis, Homicidal, Suicidal, threat to staff... and all critical care pts) @ -yes - Lab Data Result diagrams: 02/04/23 21:33 02/04/23 21:33 Lab Results 02/04/23 02/04/23 02/04/23 Range/Units 21:33 21:33 21:33 WBC 8.1 (3.8-10.6) k/uL RBC 4.53 (3.80-5.40) m/uL Hgb 13.8 (11.4-16.0) gm/dL Hct 42.5 (34.0-46.0) % MCV 93.8 (80.0-100.0) fL MCH 30.5 (25.0-35.0) pg MCHC 32.5 (31.0-37.0) g/dL RDW 13.2 (11.5-15.5) % Plt Count 216 (150-450) k/uL MPV 8.0 Neutrophils % 61 % Lymphocytes % 31 % Monocytes % 4 % Eosinophils % 3 % Basophils % 0 % Neutrophils # 5.0 (1.3-7.7) k/uL Lymphocytes # 2.5 (1.0-4.8) k/uL Monocytes # 0.3 (0-1.0) k/uL Eosinophils # 0.2 (0-0.7) k/uL Basophils # 0.0 (0-0.2) k/uL PT 10.2 (9.0-12.0) sec INR 1.0 (<1.2) APTT 25.0 (22.0-30.0) sec Sodium 140 (137-145) mmol/L Potassium 4.2 (3.5-5.1) mmol/L Chloride 105 (98-107) mmol/L Carbon Dioxide 20 L (22-30) mmol/L Anion Gap 15 mmol/L BUN 15 (7-17) mg/dL Creatinine 0.90 (0.52-1.04) mg/dL Est GFR (CKD-EPI)AfAm 85 (>60 ml/min/1.73 sqM) Est GFR (CKD-EPI)NonAf 74 (>60 ml/min/1.73 sqM) Glucose 128 H (74-99) mg/dL Calcium 9.2 (8.4-10.2) mg/dL Disposition Clinical Impression: Rib fracture Disposition: HOME SELF-CARE Condition: Fair Instructions (If sedation given, give patient instructions): Rib Fracture (ED) Prescriptions: HYDROcodone/APAP 5-325MG [[place] 5-325] 1 tab PO Q6HR PRN 3 Days #12 tab PRN Reason: Severe Pain Is patient prescribed a controlled substance at d/c from ED?: Yes If prescribed controlled substance>3 days was MAPS reviewed?: Prescribed <3 Days Referrals: Lucy Garvin MD [STAFF PHYSICIAN] - 1-2 days Kameron Tao MD [REFERRING] - 1-2 days Valdez Hutton MD [REFERRING] - 1-2 days Time of Disposition: 22:22
[2023-02-04 22:00] LABS: Prothrombin Time 10.2 sec (9.0-12.0)
[2023-02-04 22:02] LABS: Calcium 9.2 mg/dL (8.4-10.2); Potassium 4.2 mmol/L (3.5-5.1)
[2023-02-04 22:06] LABS: Basophils % (A) 0 %; Eosinophils # (A) 0.2 k/uL (0-0.7); Eosinophils % (A) 3 %; HCT 42.5 % (34.0-46.0); HGB 13.8 gm/dL (11.4-16.0); Lymphocytes # (A) 2.5 k/uL (1.0-4.8); Lymphocytes % (A) 31 %; MCH 30.5 pg (25.0-35.0); MCHC 32.5 g/dL (31.0-37.0); MCV 93.8 fL (80.0-100.0); Monocytes # (A) 0.3 k/uL (0-1.0); Monocytes % (A) 4 %; Neutrophils % (A) 61 %; Platelet Count 216 k/uL (150-450); RBC 4.53 m/uL (3.80-5.40); RDW 13.2 % (11.5-15.5); WBC 8.1 k/uL (3.8-10.6)
--- NOTE | 2023-02-04 22:08 | CT ---
EXAMINATION TYPE: CT chest wo con CT DLP: 569.8 mGycm, Automated exposure control for dose reduction was used. DATE OF EXAM: 02/04/2023 9:58 PM COMPARISON: 11/04/2022, 05/12/2022 CLINICAL INDICATION:Female, 53 years old with history of left chest trauma, chest trauma, pt fell in bath tub. pain TECHNIQUE: Multiple axial images were obtained through the chest. Sagittal and coronal reformats were created for review. Contrast used: none. Oral contrast used: none. FINDINGS: LUNGS/ PLEURA: Left lower lobe 6 mm pulmonary nodule new from 2021 from 05/12/2022. No focal consolidat ion, pneumothorax or pleural effusion. Right lower lobe superior segment calcified granuloma. AIRWAY: Patent and unremarkable. HEART: Size within normal limits. MEDIASTINUM: No gross evidence of adenopathy. VASCULATURE: No aortic aneurysm. MUSCULOSKELETAL: Cortical irregularities in the anterior aspect of ribs 5 and 6. No additional fractu res visualized. SOFT TISSUES/LYMPH NODES: Unremarkable. LOWER NECK: No significant findings. UPPER ABDOMEN: No significant findings. IMPRESSION: 1. Cortical irregularity in the anterior aspect of ribs 5 and 6 suggestive of fracture. Otherwise no evidence for fracture. No acute thoracic process. 2. Stable right lower lobe 6 mm pulmonary nodule. Continued surveillance in one year is recommended.
[2023-02-04] MEDS ORDERED: LIDOCAINE 5% PATCH TOPICAL STA (22:43)
[2023-02-04 22:58] VITALS: BP 133/70; PULSE 91; RESP 17
[2023-02-04] MEDS ORDERED: ACET/COD 300 MG/30 MG STARTER PACK 6 TAB BTL PO STA (22:58)
[2023-02-04] MEDS ORDERED: HYDROmorphone 0.5 MG/0.5 ML SYRINGE IVP STA (22:58)
== END 2023-02-04 23:20 | disposition home or self-care (01) ==
LOC: EC 21:05
DX: S22.42XA Multiple fractures of ribs, left side, initial encounter for closed fracture (principal); J45.909 Unspecified asthma, uncomplicated; K21.9 Gastro-esophageal reflux disease without esophagitis; F17.200 Nicotine dependence, unspecified, uncomplicated; F12.90 Cannabis use, unspecified, uncomplicated; Z79.899 Other long term (current) drug therapy; Z79.02 Long term (current) use of antithrombotics/antiplatelets; Z88.0 Allergy status to penicillin; Z88.8 Allergy status to other drugs, medicaments and biological substances; Z91.048 Other nonmedicinal substance allergy status; Z90.49 Acquired absence of other specified parts of digestive tract; Z90.710 Acquired absence of both cervix and uterus; W18.2XXA Fall in (into) shower or empty bathtub, initial encounter; Y92.002 Bathroom of unspecified non-institutional (private) residence as the place of occurrence of the external cause
CPT/HCPCS: 36415; 80048; 85025; 85610; 85730; 71250; 99285; 96374; J1170

== ENCOUNTER 2024-04-01 11:17 | Emergency (ER) | payer OTHER ==
[2024-04-01 11:22] VITALS: RESP 18
--- NOTE | 2024-04-01 11:30 | ED ---
Lower Extremity Injury HPI - General Chief Complaint: Extremity Injury, Lower Stated Complaint: poss stents coming out/poss broken L foot Time Seen by Provider: 04/01/24 11:30 Source: patient, RN notes reviewed Mode of arrival: wheelchair Limitations: no limitations - History of Present Illness Initial Comments: This is a 54-year-old female with a history of peripheral arterial disease who presents emergency department chief complaint of left foot and hip pain. Patient states that over the past few months she has been having pain of her left leg with ambulation. Initially when she was at the store yesterday she had pain in her left foot and felt a giving out sensation resulting in her falling on her left hip and injuring her left foot. She denies paresthesias that she has pain with ambulation of the left foot. Patient has not followed up with vascular specialist that completed the stent placement in 2022 due to patient moving to [facility]. States that she is on clopidogrel that she takes daily. Patient did not hit her head and denies loss of conscious at the time of fall. - Related Data Home Medications Medication Instructions Recorded Confirmed oxyBUTYnin chloride [Ditropan] 5 mg PO BID 05/12/22 02/04/23 Clopidogrel [Plavix] 75 mg PO DAILY 06/01/22 02/04/23 Omeprazole [PriLOSEC] 40 mg PO DAILY 09/22/22 02/04/23 Sucralfate [Carafate] 1 gm PO BID 09/22/22 02/04/23 Atorvastatin [Lipitor] 40 mg PO DAILY 02/04/23 02/04/23 Previous Rx's Medication Instructions Recorded HYDROcodone/APAP 5-325MG [[place] 1 tab PO Q6HR PRN 3 Days #12 tab 02/04/23 5-325] Allergies Allergy/AdvReac Type Severity Reaction Status Date / Time adhesive tape Allergy takes skin Verified 04/01/24 11:19 off aspirin Allergy Unknown Verified 04/01/24 11:19 Penicillins Allergy Rash/Hives Verified 04/01/24 11:19 steriods Allergy Swelling Uncoded 04/01/24 11:19 Review of Systems ROS Statement: Those systems with pertinent positive or pertinent negative responses have been documented in the HPI. ROS Other: All systems not noted in ROS Statement are negative. Past Medical History Past Medical History: Asthma, Chest Pain / Angina, COPD, GERD/Reflux, Rheumatoid Arthritis (RA), Vascular Disorder Additional Past Medical History / Comment(s): RA in multiple joints but worse in bilateral knees/hips, left bundle branch block, lupus, migraines, bladder leakage, some numbness and tingling in feet, poor vision. History of Any Multi-Drug Resistant Organisms: None Reported Past Surgical History: Cholecystectomy, Hysterectomy Additional Past Surgical History / Comment(s): Recent angiogram at [facility], laser eye surgery bilaterally X2, stent to right leg, colonoscopy, EGD. Past Anesthesia/Blood Transfusion Reactions: Postoperative Nausea & Vomiting (PONV) Additional Past Anesthesia/Blood Transfusion Reaction / Comment(s): Hx blood tranfusions - no issues. Past Psychological History: No Psychological Hx Reported Smoking Status: Current every day smoker, Light tobacco smoker Past Alcohol Use History: Rare Past Drug Use History: Marijuana - Past Family History Father Family Medical History: Liver Disease Additional Family Medical History / Comment(s): Father was an alcoholic and had liver cirrhosis. He is . Mother History Unknown: Yes Additional Family Medical History / Comment(s): Pt spent most of childhood in foster care. Family Family Medical History: No Reported History Additional Family Medical History / Comment(s): No hx of premature CAD. General Exam Limitations: no limitations General appearance: alert, in no apparent distress Head exam: Present: atraumatic, normocephalic, normal inspection Eye exam: Present: normal appearance, PERRL, EOMI. Absent: scleral icterus, conjunctival injection, periorbital swelling ENT exam: Present: normal exam, mucous membranes moist Neck exam: Present: normal inspection. Absent: tenderness, meningismus, lymphadenopathy Respiratory exam: Present: normal lung sounds bilaterally. Absent: respiratory distress, wheezes, rales, rhonchi, stridor Cardiovascular Exam: Present: regular rate, normal rhythm, normal heart sounds. Absent: systolic murmur, diastolic murmur, rubs, gallop, clicks GI/Abdominal exam: Present: soft, normal bowel sounds. Absent: distended, tenderness, guarding, rebound, rigid Left Hip exam: Present: normal inspection, tenderness (palpation over the hip). Absent: swelling, abrasion, laceration, ecchymosis Foot/Toe exam: Present: normal inspection, tenderness (lateral forefoot), swelling (lateral). Absent: abrasion, laceration, ecchymosis, deformity Back exam: Present: normal inspection Course Vital Signs 04/01/24 04/01/24 11:20 12:46 Temperature 98 F 98.1 F Pulse Rate 112 H 85 Respiratory 18 18 Rate Blood Pressure 130/79 126/90 O2 Sat by Pulse 98 97 Oximetry Medical Decision Making - Medical Decision Making Was pt. sent in by a medical professional or institution (, PA, VOICE NETWORK ENGINEER, urgent care, hospital, or [facility]...) When possible be specific @ -No Did you speak to anyone other than the patient for history (EMS, parent, family, police, friend...)? What history was obtained from this source @ -No Did you review nursing and triage notes (agree or disagree)? Why? @ -I reviewed and agree with nursing and triage notes Were old charts reviewed (outside hosp., previous admission, EMS record, old EKG, old radiological studies, urgent care reports/EKG's, [facility] records)? Report findings @ -No old charts were reviewed Differential Diagnosis (chest pain, altered mental status, abdominal pain women, abdominal pain men, vaginal bleeding, weakness, fever, dyspnea, syncope, headache, dizziness, GI bleed, back pain, seizure, CVA, palpatations, mental health, musculoskeletal)? @ -Differential Musculoskeletal Muscular strain, contusion, ligament sprain, fracture, arthritis, septic arthritis, bursitis, cellulitis, muscle spasm, nerve compression, DVT, arterial occlusion, herpes zoster, electrolyte abnormality, tumor.... This is not meant to be in all inclusive list EKG interpreted by me (3pts min.). @ -None X-rays interpreted by me (1pt min.). @ -xray of the left foot and left hip no displaced fracture or osseous abnormality noted, soft tissue swelling of the foot. CT interpreted by me (1pt min.). @ -None done U/S interpreted by me (1pt. min.). @ -None done What testing was considered but not performed or refused? (CT, X-rays, U/S, labs)? Why? @ -ReSound of the left lower extremity was considered but deferred at this time. Patient has a strong pedal pulse intact. Additionally there is no pain in the calf on dorsiflexion, negative Homans' sign, patient denies lower extremity edema, recent prolonged travel, recent surgery. Additionally patient is on clopidogrel and there is low clinical suspicion for a DVT. What meds were considered but not given or refused? Why? @ -None Did you discuss the management of the patient with other professionals (professionals i.e. , PA, VOICE NETWORK ENGINEER, lab, RT, psych nurse, social and political studies professor, it project lead, teacher, airfield services officer, caseworker protective services)? Give summary @ -No Was smoking cessation discussed for >3mins.? @ -No Was critical care preformed (if so, how long)? @ -No Were there social determinants of health that impacted care today? How? (Homeles sness, low income, unemployed, alcoholism, drug addiction, transportation, low edu. Level, literacy, decrease access to med. care, retirement, rehab)? @ -No Was there de-escalation of care discussed even if they declined (Discuss DNR or withdrawal of care, Hospice)? DNR status @ -No What co-morbidities impacted this encounter? (DM, HTN, Smoking, COPD, CAD, Cancer, CVA, ARF, Chemo, Hep., AIDS, mental health diagnosis, sleep apnea, morbid obesity)? @ -None Was patient admitted / discharged? Hospital course, mention meds given and route, prescriptions, significant lab abnormalities, going to OR and other pertinent info. @ -Discharge. 54-year-old female with left foot and hip pain. On examination patient is noted to have pain of the left lateral foot, no obvious deformity noted. Patient was provided with a dose of Toradol and will be sent for imaging of the foot and hip for further evaluation. X-rays are unremarkable. Patient provided with a dose of Tylenol in the emergency department. Recommend that patient consults the specialist which completed her procedure in 2022 referral to a vascular specialist in [place] where she is living. All questions answered at bedside and strict return parameters discussed with the patient she has verbalized understanding. Patient's foot placed in a Levi wrap and recommend that she continue to ice the affected foot, elevate, rest and use Tylenol Motrin at home as needed. Case discussed with Dr. Adames Undiagnosed new problem with uncertain prognosis? @ -No Drug Therapy requiring intensive monitoring for toxicity (Heparin, Nitro, Insulin, Cardizem)? @ -No Were any procedures done? @ -No Diagnosis/symptom? @ -left foot pain, left hip pain Acute, or Chronic, or Acute on Chronic? @ -acute Uncomplicated (without systemic symptoms) or Complicated (systemic symptoms)? @ -uncomplicated Side effects of treatment? @ -No Exacerbation, Progression, or Severe Exacerbation? @ -No Poses a threat to life or bodily function? How? (Chest pain, [place], [place], pneumonia, PE, COPD, DKA, ARF, appy, cholecystitis, CVA, Diverticulitis, Homicidal, Suicidal, threat to staff... and all critical care pts) @ -No Disposition Clinical Impression: Sprain of left foot, Left hip pain, Fall Disposition: HOME SELF-CARE Condition: Good Instructions (If sedation given, give patient instructions): Foot Sprain (ED) Additional Instructions: Return to the emergency department if symptoms worsen or do not improve. Recommend that you contact your vascular specialist for referral to a vascular specialist in your area. Is patient prescribed a controlled substance at d/c from ED?: No Referrals: None,Stated [Primary Care Provider] - 1-2 days Time of Disposition: 12:56
[2024-04-01] MEDS: KETOROLAC 15 MG/ML 1 ML VIAL IM STA (11:49)
--- NOTE | 2024-04-01 12:43 | XR ---
EXAMINATION TYPE: XR foot complete 3 views LT, XR Hip Complete 2 views LT DATE OF EXAM: 04/01/2024 Comparison: None Clinical History: 54-year-old female fall, pain Findings: Left hip: Large patient body habitus and underpenetration along with osteopenia limits the evaluation. No displ aced fracture is seen. No subluxation or dislocation. Left foot: Mild soft tissue swelling. Tiny heel spurs. No acute fracture, subluxation, dislocation seen. Impression: 1. Left hip: Limited by osteopenia and body habitus. No displaced fracture seen. 2. Left foot: Mild soft tissue swelling. No acute osseous abnormality seen.
[2024-04-01 12:47] VITALS: BP 126/90; PULSE 85; TEMP 98.1
[2024-04-01] MEDS: ACETAMINOPHEN TAB 500 MG TAB PO STA (13:03)
== END 2024-04-01 13:10 | disposition home or self-care (01) ==
LOC: EC 11:17
DX: S93.602A Unspecified sprain of left foot, initial encounter (principal); M25.552 Pain in left hip; F17.200 Nicotine dependence, unspecified, uncomplicated; Z88.0 Allergy status to penicillin; Z88.6 Allergy status to analgesic agent; Z91.048 Other nonmedicinal substance allergy status; Z88.8 Allergy status to other drugs, medicaments and biological substances; W19.XXXA Unspecified fall, initial encounter
CPT/HCPCS: 73502; 73630; 99283; 96372; J1885